=== PATIENT | female | born 1940 | race Caucasian/White ===

== ENCOUNTER 2018-10-10 11:26 | Inpatient (IN) | payer MEDICARE, OTHER ==
[~2018-10-10] VITALS: Ht 157.5 cm; Wt 74.2 kg
[~2018-10-10 11:26] MED LIST: ACETAMINOPHEN650 M1 PO; ALPRAZOLAM ER0.5 MG PO; ALPRAZOLAM0.5 MG PO; AMARYL1 MG PO; ASPERDRINK81 MG PO; ASPIRIN BUFFER325 MG PO; BIOTIN2500 MCG PO; CARVEDILOL12.5 MG PO; COMPLETE MULTI1 EAC1 PO; COZAAR100 MG PO; CRANBERRY200 MG PO; DICLOFENAC POTA50 MG PO; FISH OIL 1,0001 EAC2 PO; FUROSEMIDE40 MG PO; GABAPENTIN100 MG PO; HYDRALAZINE HCL25 MG PO; KLOR-CON 1010 MEQ PO; LASIX40 MG PO; LOSARTAN POTASS50 MG PO; LOSARTAN-HCTZ1 EAC1 PO; LOTEMAX5 ML OP; MECLIZINE HCL12.5 MG PO; MELATONIN 5 MG1 EAC1 PO; NIACIN 500 MG500 MG PO; PRILOSEC10 MG PO; PROBIOTIC DIGE1 EACH PO; PROVENTIL HFA6.7 GM INH; Potassium Chloride PO; REFRESH LIQUIGE15 ML OP; SERTRALINE HCL100 MG PO; SIMVASTATIN40 MG PO; TIZANIDINE HCL4 MG PO; VERAPAMIL HCL360 MG PO; VIGAMOX3 ML; VIGAMOX3 ML OP; VITAMIN C1000 M1 PO; ZYRTEC10 M3 PO; ZYRTEC10 MG; [UNRECOGNIZED DRUG - SUPPLY]
--- OUTSIDE RECORDS SUMMARY | 2018-10-10 11:29 | XMS REPORT | Clinical Summary ---
Author Author S[facility]St[facility] Address Unknown Phone Unavailable Care Team Providers Care Welfare Service Aide Name Role Phone Audi Gama MD PCP Unavailable Allergies Comments Active Allergy Reactions Severity Noted Date Upset stomach Upset stomach Clarithromycin Rash, Other Low 03/02/2014 (See Comments) Codeine Rash Low 03/02/2014 Erythromycin Nausea Only 03/02/2014 Hydrocodone-Acetaminophen Nausea And 03/02/2014 Vomiting Other reaction(s): Other (See Comments) jitteriness jitteriness Isradipine Other (See 03/02/2014 Comments) cough Lisinopril Other (See 03/02/2014 Comments) Penicillins Hives 03/02/2014 Other reaction(s): Other (See Comments) agitation agitation Pentazocine Lactate Other (See 03/02/2014 Comments) Medications End Date Status Medication Sig Dispensed Refills Start Date Active albuterol HFA (PROAIR Inhale 2 0 HFA, PROVENTIL HFA, puffs by 4 VENTOLIN HFA) 90 mouth via mcg/actuation inhaler inhaler. Active ALPRAZolam (XANAX) 0.5 MG Take 0.5 mg 0 tablet by mouth. 3 Active aspirin 325 MG tablet Take by 0 mouth. 1 Active carvedilol (COREG) 25 MG Take 25 mg by 0 tablet mouth. 4 Active furosemide (LASIX) 40 MG Take 40 mg by 0 tablet mouth. 4 Active glimepiride (AMARYL) 1 MG Take 1 mg by 0 tablet mouth. 3 Active losartan (COZAAR) 100 MG Take 100 mg 0 tablet by mouth. 4 Active loteprednol etabonate 0.5 0 % Gel 4 Active omeprazole (PRILOSEC OTC) Take by 0 20 MG tablet mouth. Active sertraline (ZOLOFT) 100 Take 100 mg 0 MG tablet by mouth. 4 Active simvastatin (ZOCOR) 40 MG 0 tablet 3 Active cetirizine (ZYRTEC) 10 MG Take by 0 tablet mouth. Active hydrALAZINE (APRESOLINE) Take 1 tablet 90 tablet 0 10 MG tablet (10 mg total) 4 by mouth 3 (three) times daily. Active multivitamin per tablet Take 1 tablet 0 by mouth daily. Active omega-3 fatty acids-fish Take 2 g by 0 oil 340-1,000 mg Cap per mouth 2 (two) capsule times daily. Active cranberry fruit 307 mg Take by 0 Tab mouth. Active ascorbic acid (VITAMIN C) Take 1,000 mg 0 1000 MG tablet by mouth daily. Active pyridoxine, vitamin B6, Take 100 mg 0 (B-6) 100 MG tablet by mouth daily. Active Problems Not on file Social History Date Tobacco Use Types Packs/Day Years Used Never Smoker Alcohol Use Drinks/Week oz/Week Comments No Sex Assigned at Date Recorded Not on file Industry Job Start Date Occupation Not on file Not on file Not on file Travel End Travel History Travel Start No recent travel history available. Last Filed Vital Signs Not on file Plan of Treatment Not on file Results Not on fileafter 10/09/2017 Insurance Payer Benefit Subscriber ID Type Phone Address Plan / Group [facility] xxxxxxxxxxx MEDICARE ADV
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
[2018-10-10] MEDS ORDERED: ACETAMINOPHEN 325 MG TAB PO ONE (12:00)
[2018-10-10] MEDS ORDERED: SODIUM CHLORIDE 0.9% 1000ML 1,000 ML IV SCH (12:00)
[2018-10-10] MEDS ORDERED: FLUTICASONE PRO16 GM (12:08)
[2018-10-10] MEDS ORDERED: ADVAIR 250-501 EACH (12:08)
--- NOTE | 2018-10-10 12:53 | Diagnostic Imaging Report ---
EXAMINATION: CXR 2 VIEW - HOPD INDICATION: Fever, cough. COMPARISON: None FINDINGS: TUBES and LINES: None. LUNGS: Low lung volumes. There are patchy opacities at the bilateral lung bases. No evidence of pulmonary edema. PLEURA: No pleural effusion or pneumothorax. HEART AND MEDIASTINUM: The cardiomediastinal silhouette is unremarkable. There are atherosclerotic calcifications within the aorta. BONES AND SOFT TISSUES: No acute osseous abnormality. UPPER ABDOMEN: No free air under the diaphragm. IMPRESSION: Patchy opacities at the bilateral lung bases, which may reflect pneumonia in the setting of cough and fever. Suggest follow-up chest radiograph in 6-8 weeks to assess for resolution. Signed by: Dr. Margarita Wu MD on 10/10/2018 12:50 PM
[2018-10-10] MEDS ORDERED: LEVOFLOXACIN 750MG/D5W 150ML 150 ML IV ONE (13:15)
[2018-10-10] MEDS ORDERED: SODIUM CHLORIDE FLUSH 10 ML SYR INJ PRN (13:30)
[2018-10-10] MEDS ORDERED: ASPIRIN 81 MG CHEW TAB PO ONE (13:30)
--- OUTSIDE RECORDS SUMMARY | 2018-10-10 13:58 | XMS REPORT | Clinical Summary ---
Author Author [facility]OP[facility] Address Unknown Phone Unavailable Care Team Providers Care Craft Manager Name Role Phone Audi Gama MD PCP [...]
[2018-10-10] MEDS: ALBUTEROL SULF 0.083% NEB SOLN 3 ML NEB NEB SCH ×3 (14:00→21:30)
--- NOTE | 2018-10-10 14:01 | NUR ---
report given to Maria Fernanda [facility] called, s/w Noah to transport pt.
[2018-10-10 15:35] VITALS: BP 124/57
--- NOTE | 2018-10-10 15:35 | NUR ---
PATIENT RECEIVED FROM FREE STANDING ER BY STRETCHER. ALERT AND VERBALLY RESPONSIVE. SKIN WARM AND DRY TO TOUCH, RESPIRATION EVEN AND UNLABORED; O2 IN PLACE AT 2L VIA N/C. ABDOMEN SOFT AND NON DISTENDED. PATIENT ABLE TO TRANSFER SELF FROM STRETCHER TO BED, USING HER CANE. TELEMETRY BOX 2 APPLIED, YELLOW SOCKS APPLIED. NON PITTING EDEMA NOTED TO LOWER EXTREMITIES. PATIENT ORIENTED TO SURROUNDINGS. BED IN LOWER POSITION, CALL LIGHT AT REACH. INSTRUCTED TO CALL FOR ASSISTANCE NEEDED.
[2018-10-10 16:23] VITALS: BP 124/57
--- NOTE | 2018-10-10 18:57 | NUR ---
PATIENT NOTED WITH COUGH, MD NOTIFIED, NEW ORDER RECEIVED.
[2018-10-10 19:46] VITALS: BP 134/63
--- NOTE | 2018-10-10 20:01 | NUR ---
RECEIVED PT IN BED AOX3 .RESPIRATIONS ARE EVEN AND UNLABORED .CHEST CONGESTED WILD PAIN .CALL LIGHT WITH IN REACH .CONTINUE TO MONITOR
[2018-10-10] MEDS: IPRATROPIUM BROMIDE 0.02% 2.5 ML NEB NEB SCH (20:22)
[2018-10-10 20:26] VITALS: BP 124/57
[2018-10-10] MEDS: BENZONATATE 100 MG CAP PO PRN (21:00)
[2018-10-11] VITALS (7 sets, daily range): BP systolic 119–170; BP diastolic 52–74
[2018-10-11] MEDS: IPRATROPIUM BROMIDE 0.02% 2.5 ML NEB NEB SCH ×2 (00:36→06:30)
[2018-10-11] MEDS: ALBUTEROL SULF 0.083% NEB SOLN 3 ML NEB NEB SCH ×2 (00:36→06:30)
[2018-10-11] MEDS: BENZONATATE 100 MG CAP PO PRN ×2 (06:21→21:30)
[2018-10-11] MEDS ORDERED: NON-FORMULARY MEDICATION (Acetaminophen 650 MG) PO PRN (06:30)
--- NOTE | 2018-10-11 06:59 | NUR ---
PT C/O HEADACHE AND EYE PAIN .CALLED DR BLEVINS GOT THE ORDER FOR TYLENOL AND EYE DROPS CALL LIGHT WITH IN REACH .CONTINUE TO MONITOR
[2018-10-11 07:08] LABS: BASOPHILS % 0.2 % (0.0-1.0); EOSINOPHILS # (AUTO) 0.1 (0.0-0.4); EOSINOPHILS % 0.7 % (0.0-6.0); HEMATOCRIT 31.6 % (34.2-44.1); HEMOGLOBIN 9.8 g/dL (12.0-16.0); LYMPHOCYTES # (AUTO) 1.1 (1.0-3.2); LYMPHOCYTES % 8.4 % (18.0-39.1); MEAN CORPUSCULAR HEMOGLOBIN 32.3 pg (28-32); MEAN CORPUSCULAR VOLUME 104.3 fL (81-99); MONOCYTES # (AUTO) 1.2 (0.2-0.8); MONOCYTES % 9.6 % (4.4-11.3); NEUTROPHILS # (AUTO) 10.3 (2.1-6.9); NEUTROPHILS % 80.2 % (38.7-80.0); PLATELET COUNT 255 x10e3/uL (140-360); RED BLOOD COUNT 3.03 x10e6/uL (3.6-5.1); RED CELL DISTRIBUTION WIDTH 12.9 % (11.7-14.4)
[2018-10-11] MEDS: ACETAMINOPHEN 325 MG TAB PO PRN (07:10)
--- NOTE | 2018-10-11 07:10 | NUR ---
PATIENT IN BED WITH HEAD OF BED ELEVATED RECEIVING NEB TREATMENT, NO DISTRESS NOTED. C/O HEADACHE, TYLENOL ADMINISTERED ORDERED. BED IN LOWER POSITION, CALL LIGHT AT REACH.
--- NOTE | 2018-10-11 07:31 | Diagnostic Imaging Report ---
EXAMINATION: CHEST 2 VIEWS INDICATION: Pneumonia COMPARISON: Chest radiograph 10/10/2018. FINDINGS: TUBES and LINES: None. LUNGS: Low lung volumes. Similar appearance of patchy opacities at the bilateral lung bases. No evidence of pulmonary edema. PLEURA: No pleural effusion or pneumothorax. HEART AND MEDIASTINUM: The cardiomediastinal silhouette is unremarkable. There are atherosclerotic calcifications within the aorta. BONES AND SOFT TISSUES: No acute osseous abnormality. UPPER ABDOMEN: No free air under the diaphragm. IMPRESSION: Patchy opacities at the bilateral lung bases, which may reflect pneumonia in the appropriate clinical setting. Signed by: Dr. Margarita Wu MD on 10/11/2018 7:27 AM
[2018-10-11 07:44] LABS: CREATINE KINASE MB 4.4 ng/mL (0-5.0)
[2018-10-11 07:58] LABS: ALBUMIN 2.6 g/dL (3.5-5.0); ALBUMIN/GLOBULIN RATIO 0.6 (0.8-2.0); ANION GAP 13.5 mmol/L (8-16); CALCIUM 10.4 mg/dL (8.4-10.2); CREATININE, SERUM 1.34 mg/dL (0.57-1.11); POTASSIUM 3.5 mmol/L (3.5-5.1)
[2018-10-11] MEDS ORDERED: LOTEPREDNOL ETABONATE(OPTH) 5 ML BTL OP SCH ×2 (09:00→17:00)
[2018-10-11] MEDS ORDERED: LACTATED RINGER'S 1,000 ML IV ONE (10:15)
[2018-10-11] MEDS: AZITHROMYCIN 250 MG TAB PO SCH (11:02)
--- NOTE | 2018-10-11 11:02 | NUR ---
PATIENT IN ROOM EXERCISING IN BED WITH PHYSICAL THERAPY. CALL LIGHT AT REACH. FAMILY AT BED SIDE Addendum: 10/11/18 at 1103 by Jonathon Mccormick RN WRONG PATIENT
--- NOTE | 2018-10-11 11:04 | NUR ---
MD IN TO SEE PATIENT, NEW ORDERS RECEIVED AND IMPLEMENTED.
[2018-10-11] MEDS: ALBUTEROL/IPRATROPIUM 3 ML NEB NEB PRN (11:16)
[2018-10-11] MEDS: INSULIN LISPRO 100 UNIT/1 ML 3ML VIAL SQ SCH ×3 (11:30→21:00)
[2018-10-11] MEDS: CEFEPIME 1GM/NS 0.9% 50 ML 50 ML IV SCH ×2 (14:07→22:00)
[2018-10-11] MEDS: METRONIDAZOLE 500MG/NS 100ML 100 ML IV SCH ×2 (15:00→22:00)
--- NOTE | 2018-10-11 15:47 | NUR ---
PATIENT AMBULATING IN HALLWAY WITH PHYSICAL THERAPY, NO DISTRESS NOTED. WILL CLOSELY MONITOR.
[2018-10-11] MEDS: HYDRALAZINE HCL 25 MG TAB PO SCH (17:07)
[2018-10-11] MEDS: CARVEDILOL 12.5 MG TAB PO SCH (17:08)
[2018-10-11] MEDS: LACTOBACILLUS ACIDOPHILUS CAPSULE PO SCH (17:08)
--- NOTE | 2018-10-11 17:21 | NUR ---
Edel completed. Patient was modified independent with gait and sit to stands with cane. Without oxygen, patient desaturated when walking to 84-85%. Reapplied oxygen at 2-3 L and she recovered to 90-91%. Recommend she continue mobilizing with nursing and family in halls; she has no need for skilled PT. Discharging her from PT services. Thank you for the referral. Addendum: 10/11/18 at 1723 by Silvana García PT Amended: Links added.
--- NOTE | 2018-10-11 17:23 | NUR ---
SPEECH THERAPIST RECOMMENDED MBS. MD NOTIFIED, NEW ORDER RECEIVED.
--- NOTE | 2018-10-11 20:14 | NUR ---
RECEIVE DPT IN BED AOX3 .DENIES PAIN .PT HAS DIFFICULTY BREATHING .CALL LIGHT WITH IN REACH .CONTINUE TO MONITOR
[2018-10-11] MEDS: HEPARIN SOD (PORCINE) 5,000 UNIT/ML VIAL SC SCH (21:00)
[2018-10-11] MEDS: TIZANIDINE HCL 4 MG TAB PO SCH (21:00)
[2018-10-11] MEDS: SIMVASTATIN 40 MG TAB PO SCH (23:35)
[2018-10-12] VITALS (8 sets, daily range): BP systolic 92–162; BP diastolic 51–73
[2018-10-12] MEDS ORDERED: SODIUM CHLORIDE 0.9% 250ML 250 ML ONE (04:33)
[2018-10-12] MEDS: ACETAMINOPHEN 325 MG TAB PO PRN ×2 (04:50→17:22)
--- NOTE | 2018-10-12 06:29 | NUR ---
PT HAS COUGH AND GIVEN ORDERED PAIN MEDICATION .TEM 100.0 AND GIVEN TYLENOL 650 MG .CALL LIGHT WITH IN REACH .CONTINUE TO MONITOR
[2018-10-12] MEDS: METRONIDAZOLE 500MG/NS 100ML 100 ML IV SCH ×3 (06:35→23:00)
[2018-10-12] MEDS: CEFEPIME 1GM/NS 0.9% 50 ML 50 ML IV SCH ×3 (06:35→22:00)
--- NOTE | 2018-10-12 07:16 | NUR ---
REPORT GIVEN TO THE ONCOMING NURSE
[2018-10-12] MEDS: INSULIN LISPRO 100 UNIT/1 ML 3ML VIAL SQ SCH ×4 (07:30→21:00)
[2018-10-12 07:44] LABS: ANION GAP 11.4 mmol/L (8-16); CALCIUM 10.1 mg/dL (8.4-10.2); CREATININE, SERUM 1.13 mg/dL (0.57-1.11); POTASSIUM 3.4 mmol/L (3.5-5.1)
[2018-10-12 07:46] LABS: BASOPHILS % 0.2 % (0.0-1.0); EOSINOPHILS # (AUTO) 0.2 (0.0-0.4); EOSINOPHILS % 1.5 % (0.0-6.0); HEMATOCRIT 28.5 % (34.2-44.1); HEMOGLOBIN 9.2 g/dL (12.0-16.0); LYMPHOCYTES # (AUTO) 1.2 (1.0-3.2); LYMPHOCYTES % 11.2 % (18.0-39.1); MEAN CORPUSCULAR HEMOGLOBIN 33.2 pg (28-32); MEAN CORPUSCULAR HGB CONC 32.3 g/dL (31-35); MEAN CORPUSCULAR VOLUME 102.9 fL (81-99); MONOCYTES % 9.5 % (4.4-11.3); NEUTROPHILS # (AUTO) 7.9 (2.1-6.9); NEUTROPHILS % 76.4 % (38.7-80.0); PLATELET COUNT 214 x10e3/uL (140-360); RED BLOOD COUNT 2.77 x10e6/uL (3.6-5.1); RED CELL DISTRIBUTION WIDTH 12.9 % (11.7-14.4)
[2018-10-12] MEDS: LACTOBACILLUS ACIDOPHILUS CAPSULE PO SCH ×2 (08:22→17:09)
[2018-10-12] MEDS: LORATADINE 10 MG TAB PO SCH (08:22)
[2018-10-12] MEDS: LOTEPREDNOL ETABONATE(OPTH) 5 ML BTL OP SCH (08:22)
[2018-10-12] MEDS: CARVEDILOL 12.5 MG TAB PO SCH ×2 (08:22→17:08)
[2018-10-12] MEDS: AZITHROMYCIN 250 MG TAB PO SCH (08:22)
[2018-10-12] MEDS: HYDRALAZINE HCL 25 MG TAB PO SCH ×3 (08:22→21:30)
[2018-10-12] MEDS: SERTRALINE HCL 100 MG TAB PO SCH (08:23)
[2018-10-12] MEDS: HEPARIN SOD (PORCINE) 5,000 UNIT/ML VIAL SC SCH ×2 (08:24→21:36)
[2018-10-12] MEDS ORDERED: LOSARTAN POTASSIUM 100 MG TAB PO SCH (09:00)
--- NOTE | 2018-10-12 10:53 | NUR ---
CM TO BEDSIDE TO DISCUSS IMM AND PATIENT'S RIGHTS IN DECISION MAKING REGARDING CARE. CM ANSWERED QUESTIONS. PATIENT VERBALIZED UNDERSTANDING OF DISCUSSION. SIGNATURE OBTAINED ON IMM - COPY TO CHART AND COPY LEFT AT THE BEDSIDE.
[2018-10-12] MEDS ORDERED: POTASSIUM CHLORIDE 20 MEQ TAB CR PO NR (12:00)
--- NOTE | 2018-10-12 17:06 | NUR ---
Assisted patient to Rest room, had shower, eating dinner now. Not in any distress, denies any SOB. CALL LIGHT IN REACH. KEEP MONITORING
[2018-10-12] MEDS: LOSARTAN POTASSIUM 100 MG TAB PO SCH (17:07)
--- NOTE | 2018-10-12 19:05 | NUR ---
Completed bedside rounds with morning nurse. Pt alert and orient to name. Lying Fisher' position in bed. Denies pain at this time. Call miguel within reach. Bed low and locked. Will continue to monitor.
[2018-10-12] MEDS: ALBUTEROL/IPRATROPIUM 3 ML NEB NEB PRN (19:06)
--- NOTE | 2018-10-12 21:00 | NUR ---
Administered night medications. Pt declined use of nectar thick liquids as per RT recommendations.
[2018-10-12] MEDS: SIMVASTATIN 40 MG TAB PO SCH (21:30)
[2018-10-12] MEDS: TIZANIDINE HCL 4 MG TAB PO SCH (21:32)
[2018-10-13] VITALS (7 sets, daily range): BP systolic 143–150; BP diastolic 61–79
[2018-10-13] MEDS: BENZONATATE 100 MG CAP PO PRN (03:55)
[2018-10-13] MEDS: ACETAMINOPHEN 325 MG TAB PO PRN (05:50)
[2018-10-13] MEDS: CEFEPIME 1GM/NS 0.9% 50 ML 50 ML IV SCH (05:58)
[2018-10-13] MEDS: METRONIDAZOLE 500MG/NS 100ML 100 ML IV SCH (06:40)
--- NOTE | 2018-10-13 06:45 | NUR ---
Pt right side lying in bed with eyes closed. Resp even and unlabored. No distress noted.
[2018-10-13] MEDS: INSULIN LISPRO 100 UNIT/1 ML 3ML VIAL SQ SCH ×4 (07:30→21:00)
[2018-10-13] MEDS: ALBUTEROL/IPRATROPIUM 3 ML NEB NEB PRN ×2 (07:41→19:11)
[2018-10-13] MEDS: LOTEPREDNOL ETABONATE(OPTH) 5 ML BTL OP SCH (09:11)
[2018-10-13] MEDS: LORATADINE 10 MG TAB PO SCH (09:13)
[2018-10-13] MEDS: CARVEDILOL 12.5 MG TAB PO SCH ×2 (09:13→16:51)
[2018-10-13] MEDS: AZITHROMYCIN 250 MG TAB PO SCH (09:13)
[2018-10-13] MEDS: HYDRALAZINE HCL 25 MG TAB PO SCH ×3 (09:13→21:00)
[2018-10-13] MEDS: SERTRALINE HCL 100 MG TAB PO SCH (09:13)
[2018-10-13] MEDS: LACTOBACILLUS ACIDOPHILUS CAPSULE PO SCH ×2 (09:13→16:51)
[2018-10-13] MEDS: LOSARTAN POTASSIUM 100 MG TAB PO SCH ×2 (09:13→16:51)
[2018-10-13] MEDS: HEPARIN SOD (PORCINE) 5,000 UNIT/ML VIAL SC SCH ×2 (09:16→21:00)
--- NOTE | 2018-10-13 11:55 | NUR ---
Dr. Palomares rounding at this time.
[2018-10-13] MEDS ORDERED: LOPERAMIDE HCL 2 MG CAP PO ONE (13:00)
[2018-10-13] MEDS ORDERED: TRAMADOL HCL 50 MG TAB PO ONE (13:00)
[2018-10-13] MEDS: DOXYCYCLINE HYCLATE TABLET 100 MG TAB PO SCH (16:51)
--- NOTE | 2018-10-13 19:20 | NUR ---
Completed bedside rounds with morning nurse. Pt alert and orient to name. Pt sitting on side of bed receiving breathing treatment. Denies pain at this time. Call miguel within reach. Will continue to monitor.
[2018-10-13] MEDS: SIMVASTATIN 40 MG TAB PO SCH (21:00)
[2018-10-13] MEDS: TIZANIDINE HCL 4 MG TAB PO SCH (21:00)
[2018-10-14] VITALS: BP 125/60
[2018-10-14 04:00] VITALS: BP 122/65
[2018-10-14] MEDS: ACETAMINOPHEN 325 MG TAB PO PRN (06:10)
--- NOTE | 2018-10-14 07:01 | NUR ---
Pt sitting on side of bed. No distress noted. Report given to morning nurse.
[2018-10-14] MEDS: ALBUTEROL/IPRATROPIUM 3 ML NEB NEB PRN (07:15)
[2018-10-14] MEDS: INSULIN LISPRO 100 UNIT/1 ML 3ML VIAL SQ SCH (07:30)
[2018-10-14 07:53] VITALS: BP 145/65
[2018-10-14] MEDS: CARVEDILOL 12.5 MG TAB PO SCH (08:40)
[2018-10-14] MEDS: HYDRALAZINE HCL 25 MG TAB PO SCH (08:40)
[2018-10-14] MEDS: LOSARTAN POTASSIUM 100 MG TAB PO SCH (08:40)
[2018-10-14] MEDS: HEPARIN SOD (PORCINE) 5,000 UNIT/ML VIAL SC SCH (08:44)
--- NOTE | 2018-10-14 08:46 | NUR ---
Patient resting in bed, Alert with no distress, denies any SOB or pain. tolerated breakfast and medications
[2018-10-14] MEDS: DOXYCYCLINE HYCLATE TABLET 100 MG TAB PO SCH (09:00)
[2018-10-14] MEDS: SERTRALINE HCL 100 MG TAB PO SCH (09:00)
[2018-10-14] MEDS: LORATADINE 10 MG TAB PO SCH (09:00)
[2018-10-14] MEDS: LACTOBACILLUS ACIDOPHILUS CAPSULE PO SCH (09:00)
[2018-10-14] MEDS: LOTEPREDNOL ETABONATE(OPTH) 5 ML BTL OP SCH (09:25)
[2018-10-14 09:44] VITALS: BP 145/65
[2018-10-14 11:42] VITALS: BP 154/64
[2018-10-14] MEDS ORDERED: DOXYCYCLINE HY100 MG PO (15:13)
--- NOTE | 2018-10-14 15:55 | NUR ---
patient discharged home, prescription given, iv canula removed with tip intact, no ss infiltration, tele box returned, denies any SOB or pain, son at bed side to pick her , [facility]
--- NOTE | 2018-10-14 19:39 | Discharge Summary ---
PRIMARY CARE DOCTOR: Dr. Audi Gama. FINAL DIAGNOSES: 1. Pneumonia present on admission, resolving. 2. Acute kidney injury, resolved. 3. Hypertension. CONSULTANTS: None. PROCEDURES/STUDIES PERFORMED: Modified barium swallow study. HISTORY: Per [facility] and P. HOSPITAL COURSE: The patient was admitted. She has had possible history of COPD. Cefepime was started for possible pseudomonal coverage. There was also some concern about aspiration. Therefore, IV Flagyl was started as well and azithromycin was given for empiric atypical coverage. The patient responded well. Modified barium swallow study was done, which went well; however, speech therapist recommended nectar thickened liquid. At this time, the patient does not really want to follow the recommendation; however, she understands the rationale and also possible consequences of not following the recommendation. I have also updated her primary care doctor about this as well. 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 At this time, the patient will be going home on p.o. doxycycline for three more days to complete a course. She received heparin subcu for chemical DVT prophylaxis. I have also updated the son at the bedside. The patient will follow up with her primary care doctor in a week. The patient was seen and examined today. It took 32 minutes total to discharge this patient. CONDITION ON DISCHARGE: Improved. DISCHARGE MEDICATIONS: Please see medication reconciliation form. MD MATHIEU Cervantes/GALO /[id number]
--- NOTE | 2018-10-15 08:15 | Diagnostic Imaging Report ---
EXAM: Modified barium swallow with Speech Pathologist INDICATION: ^COUGH AFTER SWALLOWING ^[id number] ^[id number] COMPARISON: None available. RADIATION DOSE: Fluoroscopy Time: 1.5 min Dose (Kerma) Area Product: 2.31 Gycm2 Air Kerma (AK) value has been reviewed. It is below the limits set by the Radiation Protocol Committee (RPC) committee. FINDINGS: See impression IMPRESSION: Laryngeal penetration and silent aspiration were noted upon administration of thin liquid consistency. Please see speech pathology report for detailed description and recommendations. Signed by: Dr. Kevin Amanda M.D. on 10/15/2018 8:12 AM
== END 2018-10-14 15:58 | disposition home or self-care (01) | DRG 194 ==
LOC: FSED 11:26 → ERHOLD 13:33 → MED/SURG3 15:41
PROVIDERS: ADMIT Internal Medicine; ATTEND Internal Medicine
DX: J15.9 Unspecified bacterial pneumonia (principal); N17.9 Acute kidney failure, unspecified; M62.82 Rhabdomyolysis; N30.00 Acute cystitis without hematuria; R53.81 Other malaise; R19.7 Diarrhea, unspecified; R51 Headache; Z88.5 Allergy status to narcotic agent; Z88.0 Allergy status to penicillin; Z88.8 Allergy status to other drugs, medicaments and biological substances; Z77.22 Contact with and (suspected) exposure to environmental tobacco smoke (acute) (chronic); E11.9 Type 2 diabetes mellitus without complications; E78.5 Hyperlipidemia, unspecified; I11.0 Hypertensive heart disease with heart failure; I50.9 Heart failure, unspecified; Z83.3 Family history of diabetes mellitus; Z82.49 Family history of ischemic heart disease and other diseases of the circulatory system; H02.402 Unspecified ptosis of left eyelid; Z79.82 Long term (current) use of aspirin
CPT/HCPCS: 36415; 71046; 74230; 80048; 80053; 81003; 82550; 82553; 82948; 83605; 83880; 84484; 85025; 87040; 87086; 87400; 93005; 94640; 97139; 99284; J0692; J1644; J7050; J7121

== ENCOUNTER 2020-09-12 22:34 | Emergency (ER) | payer MEDICARE ==
[~2020-09-12] VITALS: Ht 157.5 cm; Wt 73.9 kg
[~2020-09-12 22:34] MED LIST changes: +ADVAIR 250-501 EACH; +DOXYCYCLINE HY100 MG PO; +FLUTICASONE PRO16 GM
[2020-09-12 23:45] LABS: BASOPHILS % 0.6 % (0.0-1.0); EOSINOPHILS # (AUTO) 0.1 (0.0-0.4); EOSINOPHILS % 1.7 % (0.0-6.0); HEMATOCRIT 36.1 % (34.2-44.1); HEMOGLOBIN 11.4 g/dL (12.0-16.0); LYMPHOCYTES # (AUTO) 1.5 (1.0-3.2); LYMPHOCYTES % 20.9 % (18.0-39.1); MEAN CORPUSCULAR HEMOGLOBIN 31.6 pg (28-32); MEAN CORPUSCULAR HGB CONC 31.6 g/dL (31-35); MONOCYTES # (AUTO) 0.7 (0.2-0.8); MONOCYTES % 9.8 % (4.4-11.3); NEUTROPHILS # (AUTO) 4.7 (2.1-6.9); NEUTROPHILS % 66.9 % (38.7-80.0); PLATELET COUNT 212 x10e3/uL (140-360); RED BLOOD COUNT 3.61 x10e6/uL (3.6-5.1); RED CELL DISTRIBUTION WIDTH 12.7 % (11.7-14.4)
[2020-09-12 23:59] LABS: ALBUMIN 3.7 g/dL (3.5-5.0); ALBUMIN/GLOBULIN RATIO 1.2 (0.8-2.0); ANION GAP 14.7 mmol/L (8-16); CALCIUM 9.4 mg/dL (8.4-10.2); CREATININE, SERUM 1.08 mg/dL (0.57-1.11); POTASSIUM 3.7 mmol/L (3.5-5.1)
[2020-09-13 01:03] LABS: CREATINE KINASE MB 1.2 ng/mL (0-5.0)
[2020-09-13 02:07] LABS: CLARITY,URINE CLOUDY (CLEAR); COLOR,URINE YELLOW (YELLOW); LEUKOCYTE ESTERASE ,URINE TRACE (NEGATIVE); NITRITE,URINE NEGATIVE (NEGATIVE)
[2020-09-13 02:08] LABS: BACTERIA,URINE MANY /HPF; EPITHELIAL CELLS,URINE MANY /LPF; KETONES,URINE TRACE (NEGATIVE); PROTEIN,URINE DIPSTICK 1+ (NEGATIVE); URINE UROBILINOGEN 0.2 mg/dL (0.2 - 1)
[2020-09-13 03:07] VITALS: BP 115/65
== END 2020-09-13 03:09 | disposition home or self-care (01) ==
LOC: ER 23:01
DX: R42 Dizziness and giddiness (principal); N39.0 Urinary tract infection, site not specified; F41.9 Anxiety disorder, unspecified; E11.65 Type 2 diabetes mellitus with hyperglycemia; R94.31 Abnormal electrocardiogram [ECG] [EKG]; I10 Essential (primary) hypertension; J44.9 Chronic obstructive pulmonary disease, unspecified; I50.9 Heart failure, unspecified; K21.9 Gastro-esophageal reflux disease without esophagitis; J45.909 Unspecified asthma, uncomplicated; G62.9 Polyneuropathy, unspecified
CPT/HCPCS: 36415; 70450; 71045; 80053; 81001; 82550; 82553; 83735; 84484; 85025; 93005; 99284

== ENCOUNTER 2020-10-10 15:23 | Emergency (ER) | payer MEDICARE ==
[~2020-10-10] VITALS: Ht 157.5 cm; Wt 73.9 kg
[2020-10-10 16:46] LABS: BASOPHILS % 0.4 % (0.0-1.0); EOSINOPHILS # (AUTO) 0.1 (0.0-0.4); HEMATOCRIT 39.7 % (34.2-44.1); HEMOGLOBIN 12.6 g/dL (12.0-16.0); LYMPHOCYTES # (AUTO) 1.5 (1.0-3.2); LYMPHOCYTES % 18.8 % (18.0-39.1); MEAN CORPUSCULAR HEMOGLOBIN 31.5 pg (28-32); MEAN CORPUSCULAR HGB CONC 31.7 g/dL (31-35); MEAN CORPUSCULAR VOLUME 99.3 fL (81-99); MONOCYTES # (AUTO) 0.7 (0.2-0.8); MONOCYTES % 8.3 % (4.4-11.3); NEUTROPHILS # (AUTO) 5.7 (2.1-6.9); NEUTROPHILS % 71.1 % (38.7-80.0); PLATELET COUNT 235 x10e3/uL (140-360); RED CELL DISTRIBUTION WIDTH 13.1 % (11.7-14.4)
[2020-10-10 16:56] LABS: INR 0.89; PROTHROMBIN TIME 12.6 seconds (11.9-14.5)
[2020-10-10] MEDS ORDERED: ACETAMIN/BUTALBITAL/CAFFEINE TAB PO ONE (17:00)
[2020-10-10 17:05] LABS: ALANINE AMINOTRANSFERASE 15 IU/L (0-55); ALBUMIN 4.1 g/dL (3.5-5.0); ALBUMIN/GLOBULIN RATIO 1.1 (0.8-2.0); ALKALINE PHOSPHATASE 58 IU/L (40-150); ANION GAP 15.6 mmol/L (8-16); BLOOD UREA NITROGEN 12 mg/dL (7-26); BUN/CREATININE RATIO 15 (6-25); CALCIUM 9.8 mg/dL (8.4-10.2); CARBON DIOXIDE 30 mmol/L (22-29); CHLORIDE 105 mmol/L (98-107); CREATININE, SERUM 0.81 mg/dL (0.57-1.11); EST GLOMERULAR FILTRATION RATE > 60 ML/MIN (60-); GLUCOSE 106 mg/dL (74-118); POTASSIUM 3.6 mmol/L (3.5-5.1); SODIUM 147 mmol/L (136-145)
== END 2020-10-10 17:59 | disposition home or self-care (01) ==
LOC: ER 16:10
DX: R51.9 Headache, unspecified (principal); I10 Essential (primary) hypertension; E11.9 Type 2 diabetes mellitus without complications; I50.9 Heart failure, unspecified; J44.9 Chronic obstructive pulmonary disease, unspecified; E78.5 Hyperlipidemia, unspecified; K21.9 Gastro-esophageal reflux disease without esophagitis; F32.9 Major depressive disorder, single episode, unspecified; F41.9 Anxiety disorder, unspecified; G62.9 Polyneuropathy, unspecified; M54.9 Dorsalgia, unspecified; G89.29 Other chronic pain
CPT/HCPCS: 36415; 70450; 80053; 85025; 85610; 85730; 99284

== ENCOUNTER 2020-10-11 13:50 | Emergency (ER) | payer MEDICARE ==
[~2020-10-11] VITALS: Ht 157.5 cm; Wt 73.9 kg
[2020-10-11] MEDS ORDERED: SODIUM CHLORIDE 0.9% 1000ML 1,000 ML IV STA (14:37)
[2020-10-11] MEDS ORDERED: KETOROLAC TROMETHAMINE 30 MG/ML VIAL IV STA (14:37)
[2020-10-11] MEDS ORDERED: KETOROLAC TROMETHAMINE 30 MG/ML VIAL ONE (14:54)
[2020-10-11 15:16] LABS: BASOPHILS % 0.4 % (0.0-1.0); EOSINOPHILS # (AUTO) 0.1 (0.0-0.4); EOSINOPHILS % 1.1 % (0.0-6.0); HEMATOCRIT 37.2 % (34.2-44.1); LYMPHOCYTES # (AUTO) 1.5 (1.0-3.2); LYMPHOCYTES % 19.3 % (18.0-39.1); MEAN CORPUSCULAR HGB CONC 32.3 g/dL (31-35); MEAN CORPUSCULAR VOLUME 99.2 fL (81-99); MONOCYTES # (AUTO) 0.8 (0.2-0.8); MONOCYTES % 10.2 % (4.4-11.3); NEUTROPHILS # (AUTO) 5.4 (2.1-6.9); NEUTROPHILS % 68.6 % (38.7-80.0); PLATELET COUNT 215 x10e3/uL (140-360); RED BLOOD COUNT 3.75 x10e6/uL (3.6-5.1); RED CELL DISTRIBUTION WIDTH 13.2 % (11.7-14.4)
[2020-10-11 15:37] LABS: ALANINE AMINOTRANSFERASE 14 IU/L (0-55); ALBUMIN 3.8 g/dL (3.5-5.0); ALBUMIN/GLOBULIN RATIO 1.1 (0.8-2.0); ALKALINE PHOSPHATASE 51 IU/L (40-150); ANION GAP 15.5 mmol/L (8-16); BLOOD UREA NITROGEN 11 mg/dL (7-26); BUN/CREATININE RATIO 14 (6-25); CALCIUM 9.5 mg/dL (8.4-10.2); CARBON DIOXIDE 28 mmol/L (22-29); CHLORIDE 104 mmol/L (98-107); CREATININE, SERUM 0.78 mg/dL (0.57-1.11); EST GLOMERULAR FILTRATION RATE > 60 ML/MIN (60-); GLUCOSE 110 mg/dL (74-118); MAGNESIUM 1.7 MG/DL (1.3-2.1); POTASSIUM 3.5 mmol/L (3.5-5.1); SODIUM 144 mmol/L (136-145)
[2020-10-11] MEDS ORDERED: HYDRALAZINE HCL 20 MG/ML VIAL IV STA (15:39)
[2020-10-11 15:40] LABS: ERYTHROCYTE SEDIMENTATION RATE 29 mm/hr (0-20)
[2020-10-11 16:15] LABS: CLARITY,URINE HAZY (CLEAR); COLOR,URINE YELLOW (YELLOW); KETONES,URINE TRACE (NEGATIVE); LEUKOCYTE ESTERASE ,URINE TRACE (NEGATIVE); NITRITE,URINE NEGATIVE (NEGATIVE); PROTEIN,URINE DIPSTICK 2+ (NEGATIVE); URINE UROBILINOGEN 0.2 mg/dL (0.2 - 1)
[2020-10-11 16:17] LABS: AMORPHOUS SEDIMENT,URINE FEW (FEW); BACTERIA,URINE FEW /HPF; EPITHELIAL CELLS,URINE MODERATE /LPF; MUCUS,URINE FEW (RARE)
[2020-10-11 17:06] VITALS: BP 174/81
[2020-10-12] MEDS ORDERED: CRESTOR10 MG PO (01:30)
[2020-10-12] MEDS ORDERED: POTASSIUM CHLO20 ME1 PO (01:30)
[2020-10-12] MEDS ORDERED: ASPIRIN325 MG PO (01:30)
[2020-10-12] MEDS ORDERED: VITAMIN D325 GM PO (01:30)
[2020-10-12] MEDS ORDERED: ATIVAN0.5 MG PO (01:30)
[2020-10-12] MEDS ORDERED: LOSARTAN POTAS100 MG PO (01:30)
[2020-10-12] MEDS ORDERED: ZINC CITRATE PO (01:30)
[2020-10-12] MEDS ORDERED: PREDNISOLONE ACE5 M1 OS (01:30)
[2020-10-12] MEDS ORDERED: CEFUROXIME250 MG PO (01:30)
[2020-10-12] MEDS ORDERED: BUTALB-ASPIRIN1 EACH PO (01:30)
[2020-10-12] MEDS ORDERED: MELATONIN3 MG PO (01:30)
[2020-10-12] MEDS ORDERED: VITAMIN B-650 MG PO (01:30)
== END 2020-10-11 17:07 | disposition home or self-care (01) ==
LOC: ER 14:08
DX: R51.9 Headache, unspecified (principal); N39.0 Urinary tract infection, site not specified; I10 Essential (primary) hypertension; E11.42 Type 2 diabetes mellitus with diabetic polyneuropathy; E78.5 Hyperlipidemia, unspecified; J44.9 Chronic obstructive pulmonary disease, unspecified; I50.9 Heart failure, unspecified; J45.909 Unspecified asthma, uncomplicated; F41.9 Anxiety disorder, unspecified; M54.9 Dorsalgia, unspecified; G89.29 Other chronic pain; Z20.822 Contact with and (suspected) exposure to COVID-19
CPT/HCPCS: 36415; 71045; 80053; 81001; 83735; 85025; 85651; 87086; 99284; J0360; J1885; J7030; U0002

== ENCOUNTER 2020-10-11 21:50 | Inpatient (IN) | payer MEDICARE ==
[~2020-10-11] VITALS: Ht 154.9 cm; Wt 71.7 kg
[2020-10-11] MEDS ORDERED: HYDROMORPHONE 1MG/1ML INJ IV PRN (22:45)
[2020-10-11] MEDS ORDERED: DEXTROSE 50% SYRINGE 50 ML IV PRN (22:45)
[2020-10-11] MEDS ORDERED: METHYLPREDNISOLONE SOD SUCC 125 MG/2ML VIAL IV ONE (22:45)
[2020-10-11] MEDS ORDERED: HYDRALAZINE HCL 20 MG/ML VIAL IV PRN (22:45)
[2020-10-11] MEDS ORDERED: ONDANSETRON HCL INJ 2MG/ML 2ML 2 MG/ML VIAL IV PRN (22:45)
[2020-10-12] VITALS (13 sets, daily range): BP systolic 132–195; BP diastolic 55–141
[2020-10-12] MEDS ORDERED: VITAMIN D325 GM PO (01:30)
[2020-10-12] MEDS ORDERED: BUTALB-ASPIRIN1 EACH PO (01:30)
[2020-10-12] MEDS ORDERED: ZINC CITRATE PO (01:30)
[2020-10-12] MEDS ORDERED: ATIVAN0.5 MG PO (01:30)
[2020-10-12] MEDS ORDERED: LOSARTAN POTAS100 MG PO (01:30)
[2020-10-12] MEDS ORDERED: CEFUROXIME250 MG PO (01:30)
[2020-10-12] MEDS ORDERED: VITAMIN B-650 MG PO (01:30)
[2020-10-12] MEDS ORDERED: CRESTOR10 MG PO (01:30)
[2020-10-12] MEDS ORDERED: ASPIRIN325 MG PO (01:30)
[2020-10-12] MEDS ORDERED: POTASSIUM CHLO20 ME1 PO (01:30)
[2020-10-12] MEDS ORDERED: MELATONIN3 MG PO (01:30)
[2020-10-12] MEDS ORDERED: PREDNISOLONE ACE5 M1 OS (01:30)
[2020-10-12 05:54] LABS: BASOPHILS % 0.2 % (0.0-1.0); HEMATOCRIT 35.2 % (34.2-44.1); HEMOGLOBIN 11.3 g/dL (12.0-16.0); LYMPHOCYTES # (AUTO) 0.7 (1.0-3.2); LYMPHOCYTES % 10.3 % (18.0-39.1); MEAN CORPUSCULAR HEMOGLOBIN 31.7 pg (28-32); MEAN CORPUSCULAR HGB CONC 32.1 g/dL (31-35); MEAN CORPUSCULAR VOLUME 98.9 fL (81-99); MONOCYTES # (AUTO) 0.1 (0.2-0.8); MONOCYTES % 1.5 % (4.4-11.3); NEUTROPHILS # (AUTO) 5.7 (2.1-6.9); NEUTROPHILS % 87.5 % (38.7-80.0); PLATELET COUNT 191 x10e3/uL (140-360); RED BLOOD COUNT 3.56 x10e6/uL (3.6-5.1); RED CELL DISTRIBUTION WIDTH 13.2 % (11.7-14.4)
[2020-10-12] MEDS: METHYLPREDNISOLONE SOD SUCC 40 MG/ML VIAL 1ML IV SCH ×4 (06:11→17:59)
[2020-10-12 06:15] LABS: ALANINE AMINOTRANSFERASE 13 IU/L (0-55); ALBUMIN 3.5 g/dL (3.5-5.0); ALBUMIN/GLOBULIN RATIO 1.1 (0.8-2.0); ALKALINE PHOSPHATASE 47 IU/L (40-150); ANION GAP 14.6 mmol/L (8-16); BLOOD UREA NITROGEN 14 mg/dL (7-26); BUN/CREATININE RATIO 17 (6-25); CARBON DIOXIDE 26 mmol/L (22-29); CHLORIDE 108 mmol/L (98-107); CREATININE, SERUM 0.81 mg/dL (0.57-1.11); EST GLOMERULAR FILTRATION RATE > 60 ML/MIN (60-); GLUCOSE 165 mg/dL (74-118); POTASSIUM 3.6 mmol/L (3.5-5.1); SODIUM 145 mmol/L (136-145)
[2020-10-12] MEDS: INSULIN REGULAR, HUMAN 100 UNIT/1 ML 3ML VIAL SQ SCH ×4 (07:30→21:38)
[2020-10-12] MEDS ORDERED: CEFTRIAXONE SOD 1 GM/50 ML BAG IV SCH (08:15)
[2020-10-12] MEDS ORDERED: ALBUTEROL SULFATE HFA 8GM INHALATION AEROSOL INH PRN (08:15)
[2020-10-12] MEDS ORDERED: DIAZEPAM INJ 5 MG/ML 2 ML IV ONE (08:30)
[2020-10-12] MEDS ORDERED: ACETAMINOPHEN 325 MG TAB PO PRN (08:30)
[2020-10-12] MEDS ORDERED: HYDRALAZINE HCL 25 MG TAB PO SCH (09:00)
[2020-10-12] MEDS ORDERED: SODIUM CHLORIDE 0.9% 250ML 250 ML ONE (09:36)
[2020-10-12] MEDS: LORATADINE 10 MG TAB PO SCH (09:47)
[2020-10-12] MEDS: ASPIRIN 325 MG TAB PO SCH (09:47)
[2020-10-12] MEDS: CEFTRIAXONE SOD 1 GM in SODIUM CHLORIDE 0.9% 50ML 50 ML IV SCH (09:47)
[2020-10-12] MEDS: CARVEDILOL 12.5 MG TAB PO SCH ×2 (09:48→16:14)
[2020-10-12] MEDS: LOSARTAN POTASSIUM 100 MG TAB PO SCH (09:48)
[2020-10-12] MEDS: POTASSIUM CHLORIDE 20 MEQ TAB CR PO SCH (09:49)
[2020-10-12] MEDS: FUROSEMIDE 20 MG TAB PO SCH (09:49)
[2020-10-12] MEDS: GABAPENTIN 100 MG CAP PO SCH ×3 (09:50→21:39)
[2020-10-12] MEDS: PYRIDOXINE HCL 50 MG TAB PO SCH (09:50)
[2020-10-12] MEDS: OMEPRAZOLE 20 MG CAP PO SCH (09:50)
[2020-10-12] MEDS: SERTRALINE HCL 100 MG TAB PO SCH (09:59)
[2020-10-12] MEDS: PREDNISOLONE ACETATE 1% OPTH SUSP 5 ML BTL OP SCH (10:44)
[2020-10-12] MEDS: AMLODIPINE BESYLATE 5 MG TAB PO SCH ×2 (12:30→19:55)
[2020-10-12] MEDS: BUTALBITAL PO PRN (16:19)
[2020-10-12] MEDS: CAFFEINE PO PRN (16:19)
[2020-10-12] MEDS: ASPIRIN PO PRN (16:19)
[2020-10-12] MEDS: SALMETEROL/FLUTICASONE 250/50 INH SCH (20:15)
[2020-10-12] MEDS ORDERED: MELATONIN 3 MG TAB PO SCH (21:00)
[2020-10-12] MEDS ORDERED: MELATONIN 5 MG TABLET PO SCH (21:00)
[2020-10-12] MEDS ORDERED: SIMVASTATIN 20 MG TAB PO SCH (21:00)
[2020-10-12] MEDS ORDERED: TIZANIDINE HCL 4 MG TAB PO SCH (21:00)
[2020-10-13] MEDS: METHYLPREDNISOLONE SOD SUCC 40 MG/ML VIAL 1ML IV SCH ×2 (00:14→05:37)
[2020-10-13 03:47] VITALS: BP 177/66
[2020-10-13 05:22] LABS: BASOPHILS % 0.1 % (0.0-1.0); HEMATOCRIT 33.6 % (34.2-44.1); HEMOGLOBIN 10.8 g/dL (12.0-16.0); LYMPHOCYTES # (AUTO) 0.7 (1.0-3.2); LYMPHOCYTES % 8.5 % (18.0-39.1); MEAN CORPUSCULAR HEMOGLOBIN 31.9 pg (28-32); MEAN CORPUSCULAR HGB CONC 32.1 g/dL (31-35); MEAN CORPUSCULAR VOLUME 99.1 fL (81-99); MONOCYTES # (AUTO) 0.3 (0.2-0.8); MONOCYTES % 3.6 % (4.4-11.3); NEUTROPHILS # (AUTO) 7.3 (2.1-6.9); NEUTROPHILS % 87.3 % (38.7-80.0); PLATELET COUNT 196 x10e3/uL (140-360); RED BLOOD COUNT 3.39 x10e6/uL (3.6-5.1); RED CELL DISTRIBUTION WIDTH 13.4 % (11.7-14.4)
[2020-10-13] MEDS: BUTALBITAL PO PRN (05:31)
[2020-10-13] MEDS: CAFFEINE PO PRN (05:31)
[2020-10-13] MEDS: ASPIRIN PO PRN (05:31)
[2020-10-13 05:48] LABS: ANION GAP 14.7 mmol/L (8-16); BLOOD UREA NITROGEN 22 mg/dL (7-26); BUN/CREATININE RATIO 25 (6-25); CALCIUM 9.6 mg/dL (8.4-10.2); CARBON DIOXIDE 26 mmol/L (22-29); CHLORIDE 109 mmol/L (98-107); CREATININE, SERUM 0.87 mg/dL (0.57-1.11); EST GLOMERULAR FILTRATION RATE > 60 ML/MIN (60-); GLUCOSE 157 mg/dL (74-118); POTASSIUM 3.7 mmol/L (3.5-5.1); SODIUM 146 mmol/L (136-145)
[2020-10-13] MEDS: SALMETEROL/FLUTICASONE 250/50 INH SCH (07:15)
[2020-10-13] MEDS ORDERED: GLIMEPIRIDE 2 MG TAB PO SCH (07:30)
[2020-10-13] MEDS: INSULIN REGULAR, HUMAN 100 UNIT/1 ML 3ML VIAL SQ SCH (07:30)
[2020-10-13] MEDS: PREDNISOLONE ACETATE 1% OPTH SUSP 5 ML BTL OP SCH (08:47)
[2020-10-13] MEDS: ASPIRIN 325 MG TAB PO SCH (08:47)
[2020-10-13] MEDS: CARVEDILOL 12.5 MG TAB PO SCH (08:47)
[2020-10-13] MEDS: LORATADINE 10 MG TAB PO SCH (08:47)
[2020-10-13] MEDS: LOSARTAN POTASSIUM 100 MG TAB PO SCH (08:48)
[2020-10-13] MEDS: OMEPRAZOLE 20 MG CAP PO SCH (08:48)
[2020-10-13] MEDS: CEFTRIAXONE SOD 1 GM in SODIUM CHLORIDE 0.9% 50ML 50 ML IV SCH (08:48)
[2020-10-13] MEDS: PYRIDOXINE HCL 50 MG TAB PO SCH (08:48)
[2020-10-13] MEDS: SERTRALINE HCL 100 MG TAB PO SCH (08:48)
[2020-10-13] MEDS: FUROSEMIDE 20 MG TAB PO SCH (08:48)
[2020-10-13] MEDS: AMLODIPINE BESYLATE 5 MG TAB PO SCH (08:48)
[2020-10-13] MEDS: POTASSIUM CHLORIDE 20 MEQ TAB CR PO SCH (08:48)
[2020-10-13 08:57] VITALS: BP 147/63
[2020-10-13] MEDS ORDERED: PREDNISONE20 MG PO (08:59)
[2020-10-13] MEDS ORDERED: AMLODIPINE BESYL5 MG PO (08:59)
[2020-10-13 09:00] VITALS: BP 147/63
[2020-10-13] MEDS ORDERED: fioricet PO (09:00)
[2020-10-13] MEDS ORDERED: GABAPENTIN 300 MG CAP PO SCH (09:00)
[2020-10-13] MEDS ORDERED: INDOMETHACIN25 MG PO (09:01)
[2020-10-13] MEDS ORDERED: MELATONIN 5 MG TABLET PO SCH (21:00)
== END 2020-10-13 09:20 | disposition home or self-care (01) | DRG 103 ==
LOC: ER 22:12 → ERHOLD 22:48 → MED/SURG 23:59 → OBSVTOIN 10-12 07:26
PROVIDERS: ADMIT Internal Medicine; ATTEND Internal Medicine
DX: G44.001 Cluster headache syndrome, unspecified, intractable (principal); N39.0 Urinary tract infection, site not specified; Z20.822 Contact with and (suspected) exposure to COVID-19; I50.32 Chronic diastolic (congestive) heart failure; J44.9 Chronic obstructive pulmonary disease, unspecified; I11.0 Hypertensive heart disease with heart failure; F41.9 Anxiety disorder, unspecified; J30.9 Allergic rhinitis, unspecified; Z99.81 Dependence on supplemental oxygen; E11.40 Type 2 diabetes mellitus with diabetic neuropathy, unspecified; Z79.899 Other long term (current) drug therapy; K21.9 Gastro-esophageal reflux disease without esophagitis
CPT/HCPCS: 36415; 80048; 80053; 82948; 85025; 94664; 99283; G0378; J0696; J1817; J2920; J7050

== ENCOUNTER 2020-10-23 18:44 | Emergency (ER) | payer MEDICARE ==
[~2020-10-23] VITALS: Ht 154.9 cm; Wt 71.7 kg
[~2020-10-23 18:44] MED LIST changes: +AMLODIPINE BESYL5 MG PO; +ASPIRIN325 MG PO; +ATIVAN0.5 MG PO; +BUTALB-ASPIRIN1 EACH PO; +CEFUROXIME250 MG PO; +CRESTOR10 MG PO; +INDOMETHACIN25 MG PO; +LOSARTAN POTAS100 MG PO; +MELATONIN3 MG PO; +POTASSIUM CHLO20 ME1 PO; +PREDNISOLONE ACE5 M1 OS; +PREDNISONE20 MG PO; +VITAMIN B-650 MG PO; +VITAMIN D325 GM PO; +ZINC CITRATE PO; +fioricet PO
[2020-10-23] MEDS ORDERED: ACETAMIN/BUTALBITAL/CAFFEINE TAB PO ONE (22:45)
== END 2020-10-23 22:52 | disposition home or self-care (01) ==
LOC: ER 21:28
DX: G44.009 Cluster headache syndrome, unspecified, not intractable (principal); I10 Essential (primary) hypertension; E11.9 Type 2 diabetes mellitus without complications; J44.9 Chronic obstructive pulmonary disease, unspecified; I50.9 Heart failure, unspecified; E78.5 Hyperlipidemia, unspecified; F41.9 Anxiety disorder, unspecified; K21.9 Gastro-esophageal reflux disease without esophagitis
CPT/HCPCS: 99283

== ENCOUNTER 2020-10-26 15:45 | Inpatient (IN) | payer MEDICARE ==
[~2020-10-26] VITALS: Ht 157.5 cm; Wt 71.7 kg
[2020-10-26] MEDS ORDERED: KETOROLAC TROMETHAMINE 30 MG/ML VIAL IV STA (16:34)
[2020-10-26] MEDS ORDERED: DEXAMETHASONE SOD PHOS 10 MG/1 ML VIAL IV ONE (16:45)
[2020-10-26] MEDS ORDERED: DIPHENHYDRAMINE HCL INJ 50 MG/ML VIAL IV ONE (16:45)
[2020-10-26] MEDS ORDERED: SODIUM CHLORIDE 0.9% 500ML 500 ML IV ONE (16:45)
[2020-10-26] MEDS ORDERED: SODIUM CHLORIDE 0.9% 1000ML 1,000 ML IV STA (17:13)
[2020-10-26] MEDS ORDERED: METOCLOPRAMIDE HCL 10 MG/2ML VIAL IV ONE (17:15)
[2020-10-26 18:12] LABS: BASOPHILS % 0.2 % (0.0-1.0); EOSINOPHILS # (AUTO) 0.1 (0.0-0.4); EOSINOPHILS % 0.9 % (0.0-6.0); HEMATOCRIT 42.7 % (34.2-44.1); HEMOGLOBIN 13.8 g/dL (12.0-16.0); LYMPHOCYTES # (AUTO) 1.8 (1.0-3.2); MEAN CORPUSCULAR HEMOGLOBIN 31.8 pg (28-32); MEAN CORPUSCULAR HGB CONC 32.3 g/dL (31-35); MEAN CORPUSCULAR VOLUME 98.4 fL (81-99); MONOCYTES # (AUTO) 0.8 (0.2-0.8); MONOCYTES % 9.5 % (4.4-11.3); NEUTROPHILS # (AUTO) 5.9 (2.1-6.9); NEUTROPHILS % 67.9 % (38.7-80.0); PLATELET COUNT 303 x10e3/uL (140-360); RED BLOOD COUNT 4.34 x10e6/uL (3.6-5.1); RED CELL DISTRIBUTION WIDTH 13.5 % (11.7-14.4)
[2020-10-26 18:29] LABS: ALANINE AMINOTRANSFERASE 16 IU/L (0-55); ALBUMIN 3.9 g/dL (3.5-5.0); ALBUMIN/GLOBULIN RATIO 1.1 (0.8-2.0); ALKALINE PHOSPHATASE 73 IU/L (40-150); ANION GAP 16.1 mmol/L (8-16); BLOOD UREA NITROGEN 13 mg/dL (7-26); BUN/CREATININE RATIO 16 (6-25); CARBON DIOXIDE 27 mmol/L (22-29); CHLORIDE 105 mmol/L (98-107); CREATININE, SERUM 0.83 mg/dL (0.57-1.11); EST GLOMERULAR FILTRATION RATE > 60 ML/MIN (60-); GLUCOSE 107 mg/dL (74-118); POTASSIUM 3.1 mmol/L (3.5-5.1); SODIUM 145 mmol/L (136-145)
[2020-10-26] MEDS ORDERED: IOPAMIDOL 370 MG/ML 200 ML INFUS..BTL INJ ONE (19:05)
[2020-10-26] MEDS ORDERED: SODIUM CHLORIDE 0.9% 0 ML ONE (19:05)
[2020-10-26] MEDS ORDERED: ASPIRIN 81 MG CHEW TAB PO ONE (19:45)
[2020-10-26 23:45] VITALS: BP 159/79
[2020-10-27 04:00] VITALS: BP 140/70
[2020-10-27 05:28] LABS: BASOPHILS % 0.1 % (0.0-1.0); HEMATOCRIT 38.6 % (34.2-44.1); HEMOGLOBIN 12.3 g/dL (12.0-16.0); LYMPHOCYTES # (AUTO) 0.9 (1.0-3.2); LYMPHOCYTES % 11.3 % (18.0-39.1); MEAN CORPUSCULAR HEMOGLOBIN 31.6 pg (28-32); MEAN CORPUSCULAR HGB CONC 31.9 g/dL (31-35); MEAN CORPUSCULAR VOLUME 99.2 fL (81-99); MONOCYTES # (AUTO) 0.4 (0.2-0.8); MONOCYTES % 5.3 % (4.4-11.3); NEUTROPHILS # (AUTO) 6.9 (2.1-6.9); NEUTROPHILS % 82.7 % (38.7-80.0); PLATELET COUNT 251 x10e3/uL (140-360); RED BLOOD COUNT 3.89 x10e6/uL (3.6-5.1); RED CELL DISTRIBUTION WIDTH 13.6 % (11.7-14.4)
[2020-10-27 06:02] LABS: CREATINE KINASE MB 2.4 ng/mL (0-5.0)
[2020-10-27 06:19] LABS: ALBUMIN 3.5 g/dL (3.5-5.0); ALBUMIN/GLOBULIN RATIO 1.1 (0.8-2.0); ANION GAP 14.3 mmol/L (8-16); CALCIUM 9.6 mg/dL (8.4-10.2); CREATININE, SERUM 1.19 mg/dL (0.57-1.11); POTASSIUM 3.3 mmol/L (3.5-5.1)
[2020-10-27] MEDS ORDERED: DIAZEPAM 5 MG TAB PO PRN (07:30)
[2020-10-27] MEDS ORDERED: ALBUTEROL SULFATE HFA 8GM INHALATION AEROSOL INH PRN (07:45)
[2020-10-27] MEDS ORDERED: POTASSIUM CHLORIDE 10MEQ EA PO ONE ×2 (07:45→09:30)
[2020-10-27] MEDS ORDERED: ACETAMIN/BUTALBITAL/CAFFEINE TAB PO PRN (07:45)
[2020-10-27 07:50] VITALS: BP 171/71
[2020-10-27] MEDS: METHYLPREDNISOLONE SOD SUCC 40 MG/ML VIAL 1ML IV SCH ×2 (08:47→13:08)
[2020-10-27] MEDS ORDERED: LORAZEPAM 0.5 MG TAB PO SCH (09:00)
[2020-10-27] MEDS ORDERED: PANTOPRAZOLE SOD 40 MG TABEC PO SCH (09:00)
[2020-10-27] MEDS ORDERED: FUROSEMIDE 20 MG TAB PO SCH (09:00)
[2020-10-27] MEDS ORDERED: ASPIRIN 325 MG TAB PO SCH (09:00)
[2020-10-27] MEDS: FLUTICASONE PROPIONATE NASAL SPRAY NS SCH ×2 (09:00→17:00)
[2020-10-27] MEDS ORDERED: LORATADINE 10 MG TAB PO SCH (09:00)
[2020-10-27] MEDS ORDERED: SERTRALINE HCL 100 MG TAB PO SCH (09:00)
[2020-10-27] MEDS ORDERED: POTASSIUM CHLORIDE 20 MEQ TAB CR PO SCH (09:00)
[2020-10-27] MEDS ORDERED: GLIMEPIRIDE 2 MG TAB PO SCH (09:00)
[2020-10-27] MEDS: CARVEDILOL 12.5 MG TAB PO SCH ×2 (09:00→17:34)
[2020-10-27] MEDS: GABAPENTIN 300 MG CAP PO SCH ×2 (09:00→13:08)
[2020-10-27] MEDS ORDERED: LOSARTAN POTASSIUM 100 MG TAB PO SCH (09:00)
[2020-10-27] MEDS ORDERED: AMLODIPINE BESYLATE 5 MG TAB PO SCH (09:00)
[2020-10-27] MEDS ORDERED: PREDNISOLONE ACETATE 1% OPTH SUSP 5 ML BTL OP SCH (10:00)
[2020-10-27 10:23] LABS: CLARITY,URINE CLEAR (CLEAR); COLOR,URINE YELLOW (YELLOW); KETONES,URINE TRACE (NEGATIVE); LEUKOCYTE ESTERASE ,URINE TRACE (NEGATIVE); NITRITE,URINE NEGATIVE (NEGATIVE); PROTEIN,URINE DIPSTICK 2+ (NEGATIVE); URINE UROBILINOGEN 0.2 mg/dL (0.2 - 1)
[2020-10-27 10:42] LABS: BACTERIA,URINE FEW /HPF; EPITHELIAL CELLS,URINE MODERATE /LPF; RBC,URINE 0-5 /HPF (0-5)
[2020-10-27 11:27] VITALS: BP 190/66
[2020-10-27 11:38] LABS: CREATINE KINASE MB 2.6 ng/mL (0-5.0)
[2020-10-27] MEDS ORDERED: VALPROATE SOD INJ 500 MG in SODIUM CHLORIDE 0.9% 100 ML 100 ML INJ ONE (12:30)
[2020-10-27] MEDS ORDERED: SODIUM CHLORIDE 0.9% 250ML 250 ML ONE (14:27)
[2020-10-27 15:38] VITALS: BP 187/62
[2020-10-27] MEDS ORDERED: AMLODIPINE BESYLATE 5 MG TAB PO NR (18:30)
[2020-10-27] MEDS ORDERED: SALMETEROL/FLUTICASONE 250/50 INH SCH (19:00)
[2020-10-27] MEDS ORDERED: TIZANIDINE HCL 4 MG TAB PO SCH (21:00)
[2020-10-27] MEDS ORDERED: SIMVASTATIN 20 MG TAB PO SCH (21:00)
== END 2020-10-27 18:58 | disposition home or self-care (01) | DRG 103 ==
LOC: ER 16:40 → ERHOLD 20:57 → MED/SURG2 23:35
PROVIDERS: ADMIT Internal Medicine; ATTEND Internal Medicine
DX: G44.009 Cluster headache syndrome, unspecified, not intractable (principal); I50.32 Chronic diastolic (congestive) heart failure; I11.0 Hypertensive heart disease with heart failure; H91.90 Unspecified hearing loss, unspecified ear; Z88.5 Allergy status to narcotic agent; Z88.0 Allergy status to penicillin; Z88.8 Allergy status to other drugs, medicaments and biological substances; J44.9 Chronic obstructive pulmonary disease, unspecified; F41.9 Anxiety disorder, unspecified; E11.42 Type 2 diabetes mellitus with diabetic polyneuropathy; H02.402 Unspecified ptosis of left eyelid; G43.901 Migraine, unspecified, not intractable, with status migrainosus; H54.62 Unqualified visual loss, left eye, normal vision right eye; Z20.822 Contact with and (suspected) exposure to COVID-19; Z79.84 Long term (current) use of oral hypoglycemic drugs
CPT/HCPCS: 36415; 80053; 81001; 82550; 82553; 82948; 84484; 85025; 87086; 99284; J1100; J1200; J1885; J2765; J2920; J7030; J7050; Q9967; U0002

== ENCOUNTER 2020-11-07 09:24 | Observation (INO) | payer MEDICARE ==
[~2020-11-07] VITALS: Ht 157.5 cm; Wt 71.7 kg
[2020-11-07 10:17] LABS: BASOPHILS % 0.4 % (0.0-1.0); EOSINOPHILS # (AUTO) 0.1 (0.0-0.4); EOSINOPHILS % 1.3 % (0.0-6.0); HEMATOCRIT 44.3 % (34.2-44.1); HEMOGLOBIN 14.2 g/dL (12.0-16.0); LYMPHOCYTES # (AUTO) 1.5 (1.0-3.2); LYMPHOCYTES % 21.9 % (18.0-39.1); MEAN CORPUSCULAR HEMOGLOBIN 32.1 pg (28-32); MEAN CORPUSCULAR HGB CONC 32.1 g/dL (31-35); MEAN CORPUSCULAR VOLUME 100.2 fL (81-99); MONOCYTES # (AUTO) 0.8 (0.2-0.8); MONOCYTES % 10.8 % (4.4-11.3); NEUTROPHILS # (AUTO) 4.5 (2.1-6.9); NEUTROPHILS % 65.3 % (38.7-80.0); PLATELET COUNT 339 x10e3/uL (140-360); RED BLOOD COUNT 4.42 x10e6/uL (3.6-5.1); RED CELL DISTRIBUTION WIDTH 13.7 % (11.7-14.4)
[2020-11-07 10:22] LABS: CLARITY,URINE CLEAR (CLEAR); COLOR,URINE YELLOW (YELLOW)
[2020-11-07 10:23] LABS: BACTERIA,URINE RARE /HPF; EPITHELIAL CELLS,URINE FEW /LPF; KETONES,URINE NEGATIVE (NEGATIVE); LEUKOCYTE ESTERASE ,URINE NEGATIVE (NEGATIVE); NITRITE,URINE NEGATIVE (NEGATIVE); PROTEIN,URINE DIPSTICK NEGATIVE (NEGATIVE); RBC,URINE 0-5 /HPF (0-5); URINE UROBILINOGEN 0.2 mg/dL (0.2 - 1); WBC,URINE (MAN) 0-5 /HPF (0-5)
[2020-11-07] MEDS ORDERED: ONDANSETRON HCL INJ 2MG/ML 2ML 2 MG/ML VIAL ONE (10:24)
[2020-11-07] MEDS ORDERED: ONDANSETRON HCL INJ 2MG/ML 2ML 2 MG/ML VIAL IV STA ×3 (10:24→11:44)
[2020-11-07] MEDS ORDERED: LIDOCAINE 1% W/EPINEPHRINE 20 ML VIAL INJ ONE (10:30)
[2020-11-07 10:31] LABS: INR 0.92
[2020-11-07 10:32] LABS: PARTIAL THROMBOPLASTIN TIME 29.2 seconds (23.8-35.5)
[2020-11-07 10:36] LABS: ALBUMIN 3.8 g/dL (3.5-5.0); CREATININE, SERUM 1.34 mg/dL (0.57-1.11); MAGNESIUM 1.5 MG/DL (1.3-2.1)
[2020-11-07 10:42] LABS: CREATINE KINASE MB 1.1 ng/mL (0-5.0)
[2020-11-07] MEDS ORDERED: ONDANSETRON HCL INJ 2MG/ML 2ML 2 MG/ML VIAL IV PRN (11:45)
[2020-11-07] MEDS ORDERED: SODIUM CHLORIDE 0.9% 1000ML 1,000 ML IV ONE (12:00)
[2020-11-07 13:08] VITALS: BP 147/74
[2020-11-07 13:30] VITALS: BP 147/74
[2020-11-07 15:50] VITALS: BP 106/46
[2020-11-07] MEDS: CARVEDILOL 12.5 MG TAB PO SCH (17:00)
[2020-11-07] MEDS: ACETAMINOPHEN 325 MG TAB PO PRN (17:29)
[2020-11-07 18:42] LABS: CREATINE KINASE MB 1.4 ng/mL (0-5.0)
[2020-11-07 20:11] VITALS: BP 109/50
[2020-11-07] MEDS ORDERED: CLONAZEPAM 0.5 MG TAB PO PRN (20:30)
[2020-11-07] MEDS ORDERED: CLONAZEPAM 1 MG TAB PO PRN (20:30)
[2020-11-07] MEDS: CEPHALEXIN 500 MG CAP PO SCH (20:45)
[2020-11-07 21:33] VITALS: BP 109/50
[2020-11-08] VITALS (9 sets, daily range): BP systolic 95–133; BP diastolic 43–71
[2020-11-08 06:21] LABS: BASOPHILS % 0.2 % (0.0-1.0); EOSINOPHILS # (AUTO) 0.1 (0.0-0.4); EOSINOPHILS % 0.9 % (0.0-6.0); HEMATOCRIT 39.1 % (34.2-44.1); HEMOGLOBIN 12.4 g/dL (12.0-16.0); LYMPHOCYTES % 22.6 % (18.0-39.1); MEAN CORPUSCULAR HEMOGLOBIN 31.8 pg (28-32); MEAN CORPUSCULAR HGB CONC 31.7 g/dL (31-35); MEAN CORPUSCULAR VOLUME 100.3 fL (81-99); MONOCYTES % 11.5 % (4.4-11.3); NEUTROPHILS # (AUTO) 5.8 (2.1-6.9); NEUTROPHILS % 64.5 % (38.7-80.0); PLATELET COUNT 215 x10e3/uL (140-360); RED CELL DISTRIBUTION WIDTH 13.7 % (11.7-14.4)
[2020-11-08 07:20] LABS: ALBUMIN 3.3 g/dL (3.5-5.0); ALBUMIN/GLOBULIN RATIO 1.1 (0.8-2.0); ANION GAP 14.9 mmol/L (8-16); CREATININE, SERUM 1.19 mg/dL (0.57-1.11); POTASSIUM 3.9 mmol/L (3.5-5.1)
[2020-11-08] MEDS ORDERED: FUROSEMIDE 20 MG TAB PO SCH (09:00)
[2020-11-08] MEDS: CARVEDILOL 12.5 MG TAB PO SCH ×2 (09:00→17:00)
[2020-11-08] MEDS ORDERED: PREDNISOLONE ACETATE 1% OPTH SUSP 5 ML BTL OP SCH (09:00)
[2020-11-08] MEDS: OMEPRAZOLE 20 MG CAP PO SCH (09:44)
[2020-11-08] MEDS: LOSARTAN POTASSIUM 100 MG TAB PO SCH (09:45)
[2020-11-08] MEDS: CEPHALEXIN 500 MG CAP PO SCH ×2 (09:46→20:56)
[2020-11-08] MEDS: POTASSIUM CHLORIDE 20 MEQ TAB CR PO SCH (09:46)
[2020-11-08] MEDS: AMLODIPINE BESYLATE 5 MG TAB PO SCH (09:47)
[2020-11-08] MEDS: SERTRALINE HCL 100 MG TAB PO SCH (09:47)
[2020-11-08] MEDS: ACETAMINOPHEN 325 MG TAB PO PRN ×2 (15:01→20:57)
[2020-11-08] MEDS ORDERED: ADVAIR 250-501 EACH INH (17:42)
[2020-11-08] MEDS ORDERED: CLONAZEPAM1 MG PO (17:42)
[2020-11-08] MEDS ORDERED: PROVENTIL HFA6.7 GM INH (17:42)
[2020-11-08] MEDS ORDERED: FLONASE ALLERG9.9 ML INH (17:42)
[2020-11-08] MEDS ORDERED: OSTERA TABLET1 EACH PO (17:56)
[2020-11-08] MEDS ORDERED: ASPIRIN81 MG PO (17:56)
[2020-11-08] MEDS ORDERED: ALBUTEROL SULFATE HFA 8GM INHALATION AEROSOL INH SCH (18:00)
[2020-11-09 05:30] LABS: BASOPHILS % 0.3 % (0.0-1.0); EOSINOPHILS # (AUTO) 0.1 (0.0-0.4); HEMATOCRIT 35.8 % (34.2-44.1); HEMOGLOBIN 11.5 g/dL (12.0-16.0); LYMPHOCYTES # (AUTO) 1.6 (1.0-3.2); LYMPHOCYTES % 17.7 % (18.0-39.1); MEAN CORPUSCULAR HGB CONC 32.1 g/dL (31-35); MEAN CORPUSCULAR VOLUME 99.7 fL (81-99); MONOCYTES # (AUTO) 1.1 (0.2-0.8); MONOCYTES % 12.1 % (4.4-11.3); NEUTROPHILS # (AUTO) 6.3 (2.1-6.9); NEUTROPHILS % 68.6 % (38.7-80.0); PLATELET COUNT 225 x10e3/uL (140-360); RED BLOOD COUNT 3.59 x10e6/uL (3.6-5.1); RED CELL DISTRIBUTION WIDTH 13.8 % (11.7-14.4)
[2020-11-09 05:51] VITALS: BP 155/52
[2020-11-09 06:19] LABS: ANION GAP 15.3 mmol/L (8-16); BLOOD UREA NITROGEN 22 mg/dL (7-26); BUN/CREATININE RATIO 25 (6-25); CALCIUM 8.9 mg/dL (8.4-10.2); CARBON DIOXIDE 25 mmol/L (22-29); CHLORIDE 105 mmol/L (98-107); CREATININE, SERUM 0.87 mg/dL (0.57-1.11); EST GLOMERULAR FILTRATION RATE > 60 ML/MIN (60-); GLUCOSE 136 mg/dL (74-118); POTASSIUM 3.3 mmol/L (3.5-5.1); SODIUM 142 mmol/L (136-145)
[2020-11-09] MEDS ORDERED: SALMETEROL/FLUTICASONE 250/50 INH SCH ×2 (07:00→09:00)
[2020-11-09] MEDS: OMEPRAZOLE 20 MG CAP PO SCH (07:30)
[2020-11-09] MEDS: ACETAMINOPHEN 325 MG TAB PO PRN (08:10)
[2020-11-09 08:50] VITALS: BP 155/52
[2020-11-09] MEDS: CEPHALEXIN 500 MG CAP PO SCH (09:00)
[2020-11-09] MEDS ORDERED: FLUTICASONE PROPIONATE NASAL SPRAY NS SCH (09:00)
[2020-11-09] MEDS: POTASSIUM CHLORIDE 20 MEQ TAB CR PO SCH (09:00)
[2020-11-09] MEDS ORDERED: [UNRECOGNIZED DRUG - MIXTURE] PO SCH (09:00)
[2020-11-09] MEDS: LOSARTAN POTASSIUM 100 MG TAB PO SCH (09:00)
[2020-11-09] MEDS: SERTRALINE HCL 100 MG TAB PO SCH (09:00)
[2020-11-09] MEDS: CARVEDILOL 12.5 MG TAB PO SCH (09:00)
[2020-11-09] MEDS: AMLODIPINE BESYLATE 5 MG TAB PO SCH (09:00)
[2020-11-09] MEDS ORDERED: ASPIRIN 81 MG CHEW TAB PO SCH (09:00)
[2020-11-09 09:24] VITALS: BP 133/80
[2020-11-09] MEDS ORDERED: POTASSIUM CHLORIDE 10MEQ EA PO ONE (09:45)
[2020-11-09] MEDS ORDERED: KEFLEX125 MG/5 M PO (10:51)
[2020-11-09 12:16] VITALS: BP 113/63
[2020-11-09] MEDS ORDERED: ONDANSETRON HCL 4 MG ORAL DISINTEGRATING TAB PO PRN (12:45)
== END 2020-11-09 13:22 | disposition home or self-care (01) ==
LOC: ER 09:43 → ERHOLD 11:39 → MED/SURG2 12:53 → OBSVTOIN 11-08 10:35 → INTOOBSV 11-08 10:35
PROVIDERS: ADMIT Internal Medicine; ATTEND Internal Medicine
DX: S01.01XA Laceration without foreign body of scalp, initial encounter (principal); W18.30XA Fall on same level, unspecified, initial encounter; Y92.010 Kitchen of single-family (private) house as the place of occurrence of the external cause; H54.62 Unqualified visual loss, left eye, normal vision right eye; N28.9 Disorder of kidney and ureter, unspecified; I50.32 Chronic diastolic (congestive) heart failure; J44.9 Chronic obstructive pulmonary disease, unspecified; G44.029 Chronic cluster headache, not intractable; Z88.5 Allergy status to narcotic agent; Z88.0 Allergy status to penicillin; Z88.8 Allergy status to other drugs, medicaments and biological substances; G31.84 Mild cognitive impairment of uncertain or unknown etiology; T42.75XA Adverse effect of unspecified antiepileptic and sedative-hypnotic drugs, initial encounter
CPT/HCPCS: 12004; 36415 ×3; 51700; 70450; 71045; 72125; 80048; 80053 ×2; 81001; 82550 ×2; 82553 ×2; 82948 ×3; 83735; 84484 ×2; 85025 ×3; 85610; 85730; 86850; 86900; 87086; 93005; 94664; 94760; 96361; 97116; 97139; 97161; 97530; 99285; G0378 ×3; J2405; J7030; U0002

== ENCOUNTER 2020-11-15 00:40 | Emergency (ER) | payer MEDICARE ==
[~2020-11-15] VITALS: Ht 157.5 cm; Wt 71.7 kg
[~2020-11-15 00:40] MED LIST changes: +ADVAIR 250-501 EACH INH; +ASPIRIN81 MG PO; +CLONAZEPAM1 MG PO; +FLONASE ALLERG9.9 ML INH; +KEFLEX125 MG/5 M PO; +OSTERA TABLET1 EACH PO
[2020-11-15] MEDS ORDERED: PANTOPRAZOLE SOD 40 MG TABEC ONE (01:25)
[2020-11-15 01:26] LABS: BASOPHILS % 0.3 % (0.0-1.0); EOSINOPHILS # (AUTO) 0.1 (0.0-0.4); EOSINOPHILS % 1.2 % (0.0-6.0); HEMATOCRIT 39.3 % (34.2-44.1); HEMOGLOBIN 12.9 g/dL (12.0-16.0); LYMPHOCYTES # (AUTO) 1.4 (1.0-3.2); LYMPHOCYTES % 21.9 % (18.0-39.1); MEAN CORPUSCULAR HEMOGLOBIN 32.1 pg (28-32); MEAN CORPUSCULAR HGB CONC 32.8 g/dL (31-35); MEAN CORPUSCULAR VOLUME 97.8 fL (81-99); MONOCYTES # (AUTO) 0.8 (0.2-0.8); MONOCYTES % 11.4 % (4.4-11.3); NEUTROPHILS # (AUTO) 4.2 (2.1-6.9); NEUTROPHILS % 64.4 % (38.7-80.0); PLATELET COUNT 331 x10e3/uL (140-360); RED BLOOD COUNT 4.02 x10e6/uL (3.6-5.1); RED CELL DISTRIBUTION WIDTH 13.1 % (11.7-14.4)
[2020-11-15] MEDS ORDERED: PANTOPRAZOLE SOD 40 MG TABEC PO ONE (01:30)
[2020-11-15 01:51] LABS: ALANINE AMINOTRANSFERASE 16 IU/L (0-55); ALBUMIN 3.6 g/dL (3.5-5.0); ALKALINE PHOSPHATASE 57 IU/L (40-150); ANION GAP 15.6 mmol/L (8-16); BLOOD UREA NITROGEN 15 mg/dL (7-26); BUN/CREATININE RATIO 18 (6-25); CALCIUM 9.8 mg/dL (8.4-10.2); CARBON DIOXIDE 25 mmol/L (22-29); CHLORIDE 103 mmol/L (98-107); CREATINE KINASE 20 IU/L (29-168); CREATININE, SERUM 0.82 mg/dL (0.57-1.11); EST GLOMERULAR FILTRATION RATE > 60 ML/MIN (60-); GLUCOSE 124 mg/dL (74-118); POTASSIUM 3.6 mmol/L (3.5-5.1); SODIUM 140 mmol/L (136-145)
== END 2020-11-15 01:40 | disposition home or self-care (01) ==
LOC: ER 00:49
DX: R10.13 Epigastric pain (principal); I10 Essential (primary) hypertension; E11.42 Type 2 diabetes mellitus with diabetic polyneuropathy; J44.9 Chronic obstructive pulmonary disease, unspecified; I50.9 Heart failure, unspecified; E78.5 Hyperlipidemia, unspecified; F41.9 Anxiety disorder, unspecified; H54.62 Unqualified visual loss, left eye, normal vision right eye
CPT/HCPCS: 36415; 80053; 82550; 82553; 84484; 85025; 93005; 99283; C9113; S0164

== ENCOUNTER 2020-11-15 15:19 | Emergency (ER) | payer MEDICARE ==
[~2020-11-15] VITALS: Ht 157.5 cm; Wt 71.7 kg
== END 2020-11-15 15:50 | disposition home or self-care (01) ==
LOC: ER 15:40
DX: F41.9 Anxiety disorder, unspecified (principal); I10 Essential (primary) hypertension; E11.65 Type 2 diabetes mellitus with hyperglycemia; E11.42 Type 2 diabetes mellitus with diabetic polyneuropathy; I50.9 Heart failure, unspecified; E78.5 Hyperlipidemia, unspecified; B19.20 Unspecified viral hepatitis C without hepatic coma; Z86.73 Personal history of transient ischemic attack (TIA), and cerebral infarction without residual deficits
CPT/HCPCS: 36415; 82948; 99282

== ENCOUNTER 2020-11-20 08:58 | Outpatient (RCR) | payer MEDICARE, OTHER | END 2020-12-02 | LOC: PT 08:58 | PROVIDERS: ATTEND Internal Medicine | DX: R26.81 Unsteadiness on feet (principal); Z91.81 History of falling ==

== ENCOUNTER 2024-02-12 00:03 | Inpatient (IN) | payer MEDICARE ==
[~2024-02-12] VITALS: Ht 152.4 cm; Wt 65.3 kg
[2024-02-12] VITALS (43 sets, daily range): BP systolic 89–190; BP diastolic 39–125; PULSE 54–115; RESP 18–35; TEMP 97.7–98.5; O2SAT 70–98
[2024-02-12] MEDS ORDERED: SODIUM CHLORIDE FLUSH 10 ML SYR IV PRN (00:15)
[2024-02-12 00:37] LABS: BASOPHILS % 0.4 % (0.0-1.0); EOSINOPHILS # (AUTO) 0.2 (0.0-0.4); EOSINOPHILS % 2.5 % (0.0-6.0); HEMATOCRIT 41.8 % (34.2-44.1); HEMOGLOBIN 13.4 g/dL (12.0-16.0); LYMPHOCYTES # (AUTO) 1.3 (1.0-3.2); LYMPHOCYTES % 15.1 % (18.0-39.1); MEAN CORPUSCULAR HEMOGLOBIN 32.1 pg (28-32); MEAN CORPUSCULAR HGB CONC 32.1 g/dL (31-35); MONOCYTES # (AUTO) 0.8 (0.2-0.8); MONOCYTES % 9.8 % (4.4-11.3); NEUTROPHILS # (AUTO) 6.1 (2.1-6.9); NEUTROPHILS % 71.7 % (38.7-80.0); PLATELET COUNT 246 x10e3/uL (140-360); RED BLOOD COUNT 4.18 x10e6/uL (3.6-5.1); RED CELL DISTRIBUTION WIDTH 13.7 % (11.7-14.4); WHITE BLOOD COUNT 8.53 x10e3/uL (4.8-10.8)
[2024-02-12 00:56] LABS: ALBUMIN 3.8 g/dL (3.5-5.0); ALBUMIN/GLOBULIN RATIO 1.2 (0.8-2.0); ANION GAP 14.8 mmol/L (8-16); BILIRUBIN,TOTAL 0.6 mg/dL (0.2-1.2); CALCIUM 9.3 mg/dL (8.4-10.2); CREATININE, SERUM 0.93 mg/dL (0.57-1.11); POTASSIUM 3.8 mmol/L (3.5-5.1)
[2024-02-12 01:15] LABS: TROPONIN I 0.021 ng/mL (0-0.300)
[2024-02-12] MEDS ORDERED: ONDANSETRON HCL INJ 2MG/ML 2ML 2 MG/ML VIAL IV PRN (02:00)
[2024-02-12] MEDS ORDERED: SODIUM CHLORIDE FLUSH 10 ML SYR INJ PRN (02:00)
[2024-02-12] MEDS ORDERED: IOPAMIDOL 370 MG/ML 100 ML INFUS..BTL INJ ONE (02:03)
[2024-02-12] MEDS: ASPIRIN 81 MG CHEW TAB PO ONE (02:29)
[2024-02-12] MEDS: ALBUTEROL/IPRATROPIUM 3 ML NEB ONE (03:02)
[2024-02-12] MEDS ORDERED: ALBUTEROL SULF 0.083% NEB SOLN 3 ML NEB NEB PRN (03:45)
[2024-02-12] MEDS ORDERED: POLYETHYLENE GLYCOL 3350 17 GM PACK PO PRN (03:45)
[2024-02-12] MEDS ORDERED: HYDRALAZINE HCL 20 MG/ML VIAL IV PRN (03:45)
[2024-02-12] MEDS ORDERED: MELATONIN 3 MG TAB PO PRN (03:45)
[2024-02-12] MEDS ORDERED: DEXTROSE 50% SYRINGE 50 ML IV PRN (04:00)
[2024-02-12] MEDS: FUROSEMIDE INJ 10 MG/ML 4 ML VIAL IV ONE (04:16)
[2024-02-12] MEDS: METHYLPREDNISOLONE SOD SUCC 125 MG/2ML VIAL IV ONE (04:16)
[2024-02-12] MEDS: NITROGLYCERIN/D5W 200 MCG/ML 250 ML IV SCH (04:30)
[2024-02-12] MEDS: INSULIN REGULAR, HUMAN 100 UNIT/1 ML SQ SCH (07:30)
[2024-02-12] MEDS: IPRATROPIUM BROMIDE 0.02% 2.5 ML NEB NEB SCH (08:14)
[2024-02-12] MEDS ORDERED: OMEPRAZOLE 20 MG CAP PO SCH (09:00)
[2024-02-12] MEDS: DOCUSATE SODIUM 100 MG CAP PO SCH (09:00)
[2024-02-12] MEDS ORDERED: METHYLPREDNISOLONE SOD SUCC 40 MG/ML VIAL 1ML IV SCH (09:00)
[2024-02-12] MEDS: ASPIRIN 81 MG ENTERIC COATED PO SCH (09:02)
[2024-02-12] MEDS: SERTRALINE HCL 100 MG TAB PO SCH (09:02)
[2024-02-12] MEDS: LOSARTAN POTASSIUM 100 MG TAB PO SCH (09:05)
[2024-02-12] MEDS: MULTIVITAMINS/MINERALS TAB PO SCH (09:05)
[2024-02-12] MEDS: POTASSIUM CHLORIDE 20 MEQ TAB CR PO SCH (09:05)
[2024-02-12] MEDS: AMLODIPINE BESYLATE 5 MG TAB PO SCH (09:08)
[2024-02-12] MEDS: FUROSEMIDE INJ 10 MG/ML 4 ML VIAL IV SCH (10:43)
[2024-02-12 11:44] LABS: TROPONIN I 0.057 ng/mL (0-0.300)
[2024-02-12] MEDS: ACETAMINOPHEN 325 MG TAB PO PRN (13:35)
[2024-02-12] MEDS: ENOXAPARIN SOD INJ 40 MG/0.4 ML SYR SC SCH (16:49)
[2024-02-12] MEDS ORDERED: FUROSEMIDE INJ 10 MG/ML 4 ML VIAL IV SCH (21:00)
[2024-02-13] VITALS (29 sets, daily range): BP systolic 99–165; BP diastolic 45–94; PULSE 61–84; RESP 15–29; TEMP 97.6–98.3; O2SAT 92–98
[2024-02-13] MEDS: GUAIFENESIN/DEXTROMETHORPHAN LIQD 5 ML UDC PO PRN (01:39)
[2024-02-13 06:26] LABS: BASOPHILS % 0.3 % (0.0-1.0); EOSINOPHILS % 0.2 % (0.0-6.0); HEMOGLOBIN 13.2 g/dL (12.0-16.0); LYMPHOCYTES # (AUTO) 1.5 (1.0-3.2); LYMPHOCYTES % 10.7 % (18.0-39.1); MEAN CORPUSCULAR HEMOGLOBIN 31.7 pg (28-32); MEAN CORPUSCULAR HGB CONC 32.2 g/dL (31-35); MEAN CORPUSCULAR VOLUME 98.3 fL (81-99); MONOCYTES # (AUTO) 1.4 (0.2-0.8); MONOCYTES % 10.2 % (4.4-11.3); NEUTROPHILS # (AUTO) 10.8 (2.1-6.9); PLATELET COUNT 235 x10e3/uL (140-360); RED BLOOD COUNT 4.17 x10e6/uL (3.6-5.1); RED CELL DISTRIBUTION WIDTH 13.6 % (11.7-14.4); WHITE BLOOD COUNT 13.85 x10e3/uL (4.8-10.8)
[2024-02-13 06:53] LABS: ALBUMIN 3.7 g/dL (3.5-5.0); ALBUMIN/GLOBULIN RATIO 1.2 (0.8-2.0); ANION GAP 15.2 mmol/L (8-16); BILIRUBIN,TOTAL 0.7 mg/dL (0.2-1.2); CALCIUM 9.4 mg/dL (8.4-10.2); CREATININE, SERUM 1.03 mg/dL (0.57-1.11); TOTAL PROTEIN 6.8 g/dL (6.5-8.1)
[2024-02-13 06:58] LABS: POTASSIUM 3.2 mmol/L (3.5-5.1)
[2024-02-13 07:02] LABS: TROPONIN I 0.079 ng/mL (0-0.300)
[2024-02-13] MEDS: MAGNESIUM/ALUMINUM/SIMETHICONE 30 ML UDC PO PRN (16:37)
[2024-02-13] MEDS: NITROGLYCERIN 2% OINT 1 GM PKT ONE (18:19)
[2024-02-13] MEDS: POTASSIUM CHLORIDE 20 MEQ TAB CR PO ONE (20:57)
[2024-02-14] VITALS (26 sets, daily range): BP systolic 105–159; BP diastolic 43–105; PULSE 72–105; RESP 15–27; TEMP 98–100.4; O2SAT 87–96
[2024-02-14 14:50] LABS: BASOPHILS % 0.3 % (0.0-1.0); EOSINOPHILS # (AUTO) 0.2 (0.0-0.4); EOSINOPHILS % 1.8 % (0.0-6.0); HEMATOCRIT 43.3 % (34.2-44.1); HEMOGLOBIN 13.5 g/dL (12.0-16.0); LYMPHOCYTES # (AUTO) 1.5 (1.0-3.2); LYMPHOCYTES % 14.7 % (18.0-39.1); MEAN CORPUSCULAR HEMOGLOBIN 31.4 pg (28-32); MEAN CORPUSCULAR HGB CONC 31.2 g/dL (31-35); MEAN CORPUSCULAR VOLUME 100.7 fL (81-99); MONOCYTES # (AUTO) 1.4 (0.2-0.8); NEUTROPHILS % 68.8 % (38.7-80.0); PLATELET COUNT 242 x10e3/uL (140-360); RED CELL DISTRIBUTION WIDTH 13.7 % (11.7-14.4); WHITE BLOOD COUNT 10.17 x10e3/uL (4.8-10.8)
[2024-02-14 15:06] LABS: ALBUMIN 3.5 g/dL (3.5-5.0); ALBUMIN/GLOBULIN RATIO 1.1 (0.8-2.0); ANION GAP 15.9 mmol/L (8-16); BILIRUBIN,TOTAL 0.4 mg/dL (0.2-1.2); CALCIUM 9.4 mg/dL (8.4-10.2); CREATININE, SERUM 1.3 mg/dL (0.57-1.11); MAGNESIUM 1.9 MG/DL (1.3-2.1); POTASSIUM 3.9 mmol/L (3.5-5.1); TOTAL PROTEIN 6.8 g/dL (6.5-8.1)
[2024-02-15] VITALS (33 sets, daily range): BP systolic 126–152; BP diastolic 53–98; PULSE 73–106; RESP 11–33; TEMP 98.4–98.5; O2SAT 93–100
[2024-02-15 07:02] LABS: BASOPHILS % 0.3 % (0.0-1.0); EOSINOPHILS # (AUTO) 0.3 (0.0-0.4); HEMATOCRIT 44.9 % (34.2-44.1); HEMOGLOBIN 13.6 g/dL (12.0-16.0); LYMPHOCYTES # (AUTO) 1.2 (1.0-3.2); LYMPHOCYTES % 11.9 % (18.0-39.1); MEAN CORPUSCULAR HEMOGLOBIN 31.3 pg (28-32); MEAN CORPUSCULAR HGB CONC 30.3 g/dL (31-35); MEAN CORPUSCULAR VOLUME 103.2 fL (81-99); MONOCYTES # (AUTO) 1.2 (0.2-0.8); NEUTROPHILS % 72.3 % (38.7-80.0); PLATELET COUNT 238 x10e3/uL (140-360); RED BLOOD COUNT 4.35 x10e6/uL (3.6-5.1); RED CELL DISTRIBUTION WIDTH 13.6 % (11.7-14.4); WHITE BLOOD COUNT 9.74 x10e3/uL (4.8-10.8)
[2024-02-15 07:24] LABS: ALBUMIN 3.4 g/dL (3.5-5.0); ALBUMIN/GLOBULIN RATIO 1.1 (0.8-2.0); ANION GAP 14.5 mmol/L (8-16); BILIRUBIN,TOTAL 0.7 mg/dL (0.2-1.2); CALCIUM 8.9 mg/dL (8.4-10.2); CREATININE, SERUM 0.98 mg/dL (0.57-1.11); POTASSIUM 3.5 mmol/L (3.5-5.1); TOTAL PROTEIN 6.5 g/dL (6.5-8.1)
[2024-02-16] VITALS (38 sets, daily range): BP systolic 100–164; BP diastolic 52–122; PULSE 72–109; RESP 15–28; TEMP 97.7–98.8; O2SAT 92–100
[2024-02-16 06:34] LABS: BASOPHILS % 0.4 % (0.0-1.0); EOSINOPHILS # (AUTO) 0.2 (0.0-0.4); EOSINOPHILS % 2.7 % (0.0-6.0); HEMATOCRIT 36.7 % (34.2-44.1); HEMOGLOBIN 11.3 g/dL (12.0-16.0); LYMPHOCYTES % 12.2 % (18.0-39.1); MEAN CORPUSCULAR HEMOGLOBIN 31.5 pg (28-32); MEAN CORPUSCULAR HGB CONC 30.8 g/dL (31-35); MEAN CORPUSCULAR VOLUME 102.2 fL (81-99); MONOCYTES % 11.6 % (4.4-11.3); NEUTROPHILS # (AUTO) 6.1 (2.1-6.9); NEUTROPHILS % 72.5 % (38.7-80.0); PLATELET COUNT 186 x10e3/uL (140-360); RED BLOOD COUNT 3.59 x10e6/uL (3.6-5.1); RED CELL DISTRIBUTION WIDTH 13.4 % (11.7-14.4); WHITE BLOOD COUNT 8.45 x10e3/uL (4.8-10.8)
[2024-02-16 06:58] LABS: ALBUMIN 2.4 g/dL (3.5-5.0); BILIRUBIN,TOTAL 0.5 mg/dL (0.2-1.2); CREATININE, SERUM 0.73 mg/dL (0.57-1.11); TOTAL PROTEIN 4.8 g/dL (6.5-8.1)
[2024-02-16 07:22] LABS: ANION GAP 16.7 mmol/L (8-16)
[2024-02-16 07:29] LABS: CALCIUM 6.5 mg/dL (8.4-10.2); POTASSIUM 2.7 mmol/L (3.5-5.1)
[2024-02-16] MEDS: POTASSIUM CHLORIDE 20MEQ/100ML 200 ML IV ONE (07:47)
[2024-02-16] MEDS: FUROSEMIDE INJ 10 MG/ML 4 ML VIAL IV SCH (09:19)
[2024-02-16] MEDS: POTASSIUM CHLORIDE 20MEQ/100ML 100 ML IV SCH (17:33)
[2024-02-16] MEDS ORDERED: POTASSIUM CHLORIDE 20MEQ/100ML 200 ML IV ONE (18:00)
[2024-02-17] VITALS (19 sets, daily range): BP systolic 104–155; BP diastolic 69–93; PULSE 72–109; RESP 8–27; TEMP 97.3–98; O2SAT 86–98
[2024-02-17 06:49] LABS: BASOPHILS % 0.3 % (0.0-1.0); EOSINOPHILS # (AUTO) 0.3 (0.0-0.4); EOSINOPHILS % 2.3 % (0.0-6.0); HEMOGLOBIN 12.7 g/dL (12.0-16.0); LYMPHOCYTES # (AUTO) 1.1 (1.0-3.2); LYMPHOCYTES % 8.7 % (18.0-39.1); MEAN CORPUSCULAR HEMOGLOBIN 31.5 pg (28-32); MEAN CORPUSCULAR VOLUME 101.7 fL (81-99); MONOCYTES # (AUTO) 1.2 (0.2-0.8); MONOCYTES % 9.9 % (4.4-11.3); NEUTROPHILS # (AUTO) 9.6 (2.1-6.9); NEUTROPHILS % 78.3 % (38.7-80.0); PLATELET COUNT 215 x10e3/uL (140-360); RED BLOOD COUNT 4.03 x10e6/uL (3.6-5.1); RED CELL DISTRIBUTION WIDTH 13.2 % (11.7-14.4)
[2024-02-17 07:12] LABS: ALBUMIN/GLOBULIN RATIO 0.9 (0.8-2.0); ANION GAP 13.3 mmol/L (8-16); BILIRUBIN,TOTAL 0.6 mg/dL (0.2-1.2); CALCIUM 8.7 mg/dL (8.4-10.2); POTASSIUM 4.3 mmol/L (3.5-5.1); TOTAL PROTEIN 6.2 g/dL (6.5-8.1)
[2024-02-18] VITALS (30 sets, daily range): BP systolic 113–177; BP diastolic 62–135; PULSE 29–107; RESP 0–30; TEMP 97.5–98.9; O2SAT 88–100
[2024-02-18 06:18] LABS: BASOPHILS # (AUTO) 0.1 (0.0-0.1); BASOPHILS % 0.4 % (0.0-1.0); EOSINOPHILS # (AUTO) 0.4 (0.0-0.4); EOSINOPHILS % 2.9 % (0.0-6.0); HEMOGLOBIN 12.7 g/dL (12.0-16.0); LYMPHOCYTES # (AUTO) 1.2 (1.0-3.2); LYMPHOCYTES % 9.5 % (18.0-39.1); MEAN CORPUSCULAR HEMOGLOBIN 31.4 pg (28-32); MEAN CORPUSCULAR VOLUME 101.5 fL (81-99); MONOCYTES # (AUTO) 1.2 (0.2-0.8); NEUTROPHILS # (AUTO) 9.5 (2.1-6.9); NEUTROPHILS % 76.9 % (38.7-80.0); PLATELET COUNT 244 x10e3/uL (140-360); RED BLOOD COUNT 4.04 x10e6/uL (3.6-5.1); RED CELL DISTRIBUTION WIDTH 13.2 % (11.7-14.4); WHITE BLOOD COUNT 12.36 x10e3/uL (4.8-10.8)
[2024-02-18 06:39] LABS: ALBUMIN/GLOBULIN RATIO 0.9 (0.8-2.0); ANION GAP 14.7 mmol/L (8-16); BILIRUBIN,TOTAL 0.5 mg/dL (0.2-1.2); CALCIUM 9.5 mg/dL (8.4-10.2); CREATININE, SERUM 1.02 mg/dL (0.57-1.11); POTASSIUM 4.7 mmol/L (3.5-5.1); TOTAL PROTEIN 6.4 g/dL (6.5-8.1)
[2024-02-19] VITALS (30 sets, daily range): BP systolic 97–161; BP diastolic 50–95; PULSE 79–105; RESP 8–28; TEMP 97.8–98.2; O2SAT 89–100
[2024-02-20] VITALS (13 sets, daily range): BP systolic 93–155; BP diastolic 54–83; PULSE 69–96; RESP 15–22; TEMP 95.7–98.3; O2SAT 96–100
[2024-02-20] MEDS ORDERED: ONDANSETRON HCL 4 MG ORAL DISINTEGRATING TAB PO PRN (08:45)
[2024-02-21] VITALS (8 sets, daily range): BP systolic 106–148; BP diastolic 50–77; PULSE 71–107; RESP 18–22; TEMP 97.8–98.2; O2SAT 95–100
[2024-02-21 06:23] LABS: BASOPHILS # (AUTO) 0.1 (0.0-0.1); BASOPHILS % 0.6 % (0.0-1.0); EOSINOPHILS # (AUTO) 0.3 (0.0-0.4); HEMATOCRIT 38.9 % (34.2-44.1); HEMOGLOBIN 12.1 g/dL (12.0-16.0); LYMPHOCYTES # (AUTO) 1.4 (1.0-3.2); LYMPHOCYTES % 12.6 % (18.0-39.1); MEAN CORPUSCULAR HEMOGLOBIN 31.3 pg (28-32); MEAN CORPUSCULAR HGB CONC 31.1 g/dL (31-35); MEAN CORPUSCULAR VOLUME 100.8 fL (81-99); MONOCYTES # (AUTO) 1.3 (0.2-0.8); MONOCYTES % 11.8 % (4.4-11.3); NEUTROPHILS # (AUTO) 7.7 (2.1-6.9); NEUTROPHILS % 71.3 % (38.7-80.0); PLATELET COUNT 278 x10e3/uL (140-360); RED BLOOD COUNT 3.86 x10e6/uL (3.6-5.1); RED CELL DISTRIBUTION WIDTH 12.9 % (11.7-14.4); WHITE BLOOD COUNT 10.78 x10e3/uL (4.8-10.8)
[2024-02-21 06:44] LABS: ANION GAP 15.4 mmol/L (8-16); CALCIUM 9.5 mg/dL (8.4-10.2); CREATININE, SERUM 1.34 mg/dL (0.57-1.11); POTASSIUM 4.4 mmol/L (3.5-5.1)
[2024-02-21] MEDS ORDERED: SODIUM CHLORIDE 0.9% 250ML 250 ML ONE (09:20)
[2024-02-21] MEDS ORDERED: PANTOPRAZOLE SOD 40 MG TABEC PO SCH (16:30)
== END 2024-02-21 15:27 | disposition home health service (06) | DRG 291 ==
LOC: ER 00:07 → ERHOLD 01:54 → ICU 03:19 → MED/SURG2 02-19 14:37
PROVIDERS: ADMIT Family Medicine; ATTEND Family Medicine
PROC: 02HV33Z Insertion of Infusion Device into Superior Vena Cava, Percutaneous Approach (ICD-10-PCS; principal; 2024-02-12)
PROC: 5A09357 Assistance with Respiratory Ventilation, Less than 24 Consecutive Hours, Continuous Positive Airway Pressure (ICD-10-PCS; 2024-02-12)
DX: I13.0 Hypertensive heart and chronic kidney disease with heart failure and stage 1 through stage 4 chronic kidney disease, or unspecified chronic kidney disease (principal); G93.41 Metabolic encephalopathy; J96.01 Acute respiratory failure with hypoxia; J18.9 Pneumonia, unspecified organism; I50.23 Acute on chronic systolic (congestive) heart failure; J45.901 Unspecified asthma with (acute) exacerbation; F03.90 Unspecified dementia, unspecified severity, without behavioral disturbance, psychotic disturbance, mood disturbance, and anxiety; E11.22 Type 2 diabetes mellitus with diabetic chronic kidney disease; N18.31 Chronic kidney disease, stage 3a; Z11.52 Encounter for screening for COVID-19; E78.5 Hyperlipidemia, unspecified; F32.9 Major depressive disorder, single episode, unspecified; F41.8 Other specified anxiety disorders; J44.9 Chronic obstructive pulmonary disease, unspecified; R53.81 Other malaise; H54.62 Unqualified visual loss, left eye, normal vision right eye; H91.92 Unspecified hearing loss, left ear; I69.992 Facial weakness following unspecified cerebrovascular disease; Z79.82 Long term (current) use of aspirin; Z79.51 Long term (current) use of inhaled steroids; Z90.49 Acquired absence of other specified parts of digestive tract; Z90.710 Acquired absence of both cervix and uterus; Z86.011 Personal history of benign neoplasm of the brain; Z88.0 Allergy status to penicillin; Z88.5 Allergy status to narcotic agent; Z88.1 Allergy status to other antibiotic agents; Z88.8 Allergy status to other drugs, medicaments and biological substances
CPT/HCPCS: 0223U; 36415; 36569; 51700; 71045; 71260; 80048; 80053; 82550; 82948; 83735; 83880; 84484; 85025; 87400; 93005; 93306; 94640; 94660; 94760; 94799; 96372; 99252; 99285; J0696; J1650; J1940; J2470; J2919; J3480; J7050; Q9967